=== PATIENT | female | born 1990 | race Caucasian/White ===

== ENCOUNTER 2017-04-17 16:28 | Observation (INO) ==
--- NOTE | 2017-04-17 16:40 | Emergency Department Note ---
Disposition Clinical Impression: Pyelonephritis Disposition: Admitted As Inpatient Condition: Fair Time of Disposition: 19:56 General Adult HPI - General Chief complaint: ED Abdominal Pain Stated complaint: abd/back pain Time Seen by Provider: 04/17/17 16:36 Source: patient Limitations: no limitations Nursing Notes Reviewed: Yes Vital Signs Reviewed: Yes - History of Present Illness HPI Narrative: 26-year-old female presents to the emergency department with concern for having a UTI as she has had in the past. She is complaining of myalgias, left flank tenderness. She is also reporting nausea. Patient states that she has had pyelonephritis in the past in and this had to be admitted for it. Patient states that she has a recent confirmed intrauterine 3 weeks ago. Pain Scale: 7 - Related Data Home Medications Medication Instructions Recorded Confirmed Ondansetron HCl [Zofran] 4 mg PO Q4-6H PRN 04/16/15 04/17/17 Previous Rx's Medication Instructions Recorded Vit/Iron Fumarate/FA 1 each PO DAILY #30 tablet 03/22/17 [ Tablet] Allergies Allergy/AdvReac Type Severity Reaction Status Date / Time No Known Allergies Allergy Verified 03/22/17 09:53 All systems ED: reviewed and negative except as stated. Review of Systems: As Per HPI Constitutional: Reports: fever Cardiovascular: Denies: chest pain Respiratory: Denies: cough Gastrointestinal: Reports: abdominal pain, nausea Genitourinary: Reports: urgency Musculoskeletal: Reports: back pain Integumentary: Denies: rash Neurological: Denies: headache Past Medical History - Past Medical History Medical history: Reports: no medical history, other Surgical history: Reports: other Psychiatric history: Reports: no psych history RECONSTRUCTIVE SURGEON history: Reports: no RECONSTRUCTIVE SURGEON history - Social History Smoking Status: Never smoker Smokeless Tobacco Status: No Alcohol use: Reports: none Drug use: Reports: none Physical Exam General: Thin 26-year-old male who appears mildly uncomfortable Head: autraumatic, EOMI, no conjuncitval pallor, no scleral icterus, Mouth: oral mucous membranes moist Neck: neck soft, trachea midline Chest:: Equal chest wall rise Lungs: Normal lungs sounds bilaterally, no wheezes, no respiratory distress Heart: normal heart sounds, normal rate and rhythm, Abdomen: soft, mild suprapubic tenderness, no rigidity, no guarding, no rebdound tenderness Back: Left CVA tenderness Lower Extremities: no pedal edema, calves non-tender Integumentary: Skin warm, dry, and intact Neuro: Alert Psych: normal affect, normal mood - General Limitations: no limitations General appearance: alert, in no apparent distress Course Vital Signs Temperature 99.8 F H 04/17/17 16:30 Pulse Rate 117 04/17/17 16:30 Respiratory Rate 16 04/17/17 16:30 Blood Pressure 109/76 04/17/17 16:30 O2 Sat by Pulse Oximetry 100 04/17/17 16:30 Temperature 98.7 F 04/17/17 21:10 Pulse Rate 105 04/17/17 21:10 Respiratory Rate 16 04/17/17 21:10 Blood Pressure 103/65 04/17/17 21:10 O2 Sat by Pulse Oximetry 97 04/17/17 21:10 Oxygen Delivery Oxygen Delivery Room Air Medical Decision Making - MDM Narrative Medical decision making narrative: 26-year-old female who is currently 11 weeks presented to the emergency department with concern for pyelonephritis as she was having left flank pain, subjective fevers. Patient's also reported a history of this. Patient's urinalysis revealed a urinary tract infection. Patient's CBC revealed a mild leukocytosis of 11.7. The patient was administered 2 L of fluid with normal saline in the emergency department. She was given Tylenol for her pain and Benadryl for nausea. Patient was given a gram of Rocephin here. Patient did not feel comfortable going home as she stated that she would probably come back to the emergency department if we released her. Due to patient being and having pyelonephritis, but that it was reasonable to admit her as pyelonephritis in can be risky for the . I spoke with the hospitalist on the phone and he agreed to accept the admission pending that I consult RECONSTRUCTIVE SURGEON. Consulted RECONSTRUCTIVE SURGEON regarding the case and they had no further recommendations for the patient as this is currently a nonviable below 20 weeks. They agreed with the antimicrobials that I administered as well as Tylenol. I discussed the plan with the patient and she was in agreement. Vital Signs Temperature 99.8 F H 04/17/17 16:30 Pulse Rate 117 04/17/17 16:30 Respiratory Rate 16 04/17/17 16:30 Blood Pressure 109/76 04/17/17 16:30 O2 Sat by Pulse Oximetry 100 04/17/17 16:30 Temperature 98.7 F 04/17/17 21:10 Pulse Rate 105 04/17/17 21:10 Respiratory Rate 16 04/17/17 21:10 Blood Pressure 103/65 04/17/17 21:10 O2 Sat by Pulse Oximetry 97 04/17/17 21:10 Oxygen Delivery Oxygen Delivery Room Air - Medical Records Medical records reviewed: Yes I reviewed the patient's medical records. - Lab Data Lab results reviewed: Yes I reviewed the patient's lab results. Result diagrams: 04/17/17 17:00 04/17/17 17:00 Lab Results 04/17/17 04/17/17 04/17/17 Range/Units 16:42 16:42 17:00 WBC 11.7 H (4.3-11.1) K/mcL RBC 3.70 L (3.82-4.97) M/mcL Hgb 11.0 L (11.5-15.4) g/dL Hct 31.8 L (35.3-44.9) % MCV 85.9 (83.0-100.0) fL MCH 29.7 (28.0-33.3) pg MCHC 34.6 (31.6-35.5) g/dL RDW 12.4 (11.5-14.5) % Plt Count 360 (140-400) K/mcL MPV 8.7 L (9.4-12.4) fL Immature Gran % 0.4 (0-4) % Seg Neutrophils % 76.0 % Lymphocytes % 11.5 % Monocytes % 11.0 % Eosinophils % 0.8 % Basophils % 0.3 % Neutrophils # 8.9 (1.6-8.9) K/mcL Lymphocytes # 1.3 (0.6-4.6) K/mcL Monocytes # 1.3 (0.0-1.3) K/mcL Eosinophils # 0.1 (0.0-0.6) K/mcL Basophils # 0.0 (0.0-0.2) K/mcL Sodium (136-145) mEq/L Potassium (3.5-4.5) mEq/L Chloride (98-109) mEq/L Carbon Dioxide (19-29) mEq/L BUN (7-20) mg/dL Creatinine (0.57-1.11) mg/dL Est GFR ( Amer) (> 60) Est GFR (Non-Af Amer) (> 60) BUN/Creatinine Ratio (6-26) Glucose (70-99) mg/dL Calculated Osmolality (280-300) Calcium (8.6-10.8) mg/dL Total Bilirubin (0.2-1.2) mg/dL AST (5-34) Units/L ALT (0-55) Units/L Alkaline Phosphatase (38-126) Units/L Serum Total Protein (6.0-8.3) g/dL Albumin (3.5-5.0) g/dL Globulin (2.4-3.5) g/dL Albumin/Globulin Ratio (1.1-2.2) Lipase (8-78) Units/L Urine Color Yellow (Yellow) Urine Clarity Cloudy A (Clear) Urine pH 6.5 (5.0-8.0) pH Units Ur Specific [place] 1.025 (1.010-1.025) Urine Protein Trace (Neg-Trace) mg/dL Urine Glucose (UA) Normal (Normal) mg/dL Urine Ketones Trace H (Negative) mg/dL Urine Blood Trace H (Negative) Urine Nitrite Positive A (Negative) Urine Bilirubin Negative (Negative) Urine Urobilinogen Normal (Normal) mg/dL Ur Leukocyte Esterase Large H (Negative) Urine Microscopic RBC 3-5 H (0-3) per hpf Urine Microscopic WBC TNTC H (0-3) per hpf Ur Squamous Epith Cells Many H (None-Few) per lpf Urine Bacteria Many H (None-Few) per hpf Ur Culture Indicated? YES A (NO) Urine Test Positive A (Negative) 04/17/17 Range/Units 17:00 WBC (4.3-11.1) K/mcL RBC (3.82-4.97) M/mcL Hgb (11.5-15.4) g/dL Hct (35.3-44.9) % MCV (83.0-100.0) fL MCH (28.0-33.3) pg MCHC (31.6-35.5) g/dL RDW (11.5-14.5) % Plt Count (140-400) K/mcL MPV (9.4-12.4) fL Immature Gran % (0-4) % Seg Neutrophils % % Lymphocytes % % Monocytes % % Eosinophils % % Basophils % % Neutrophils # (1.6-8.9) K/mcL Lymphocytes # (0.6-4.6) K/mcL Monocytes # (0.0-1.3) K/mcL Eosinophils # (0.0-0.6) K/mcL Basophils # (0.0-0.2) K/mcL Sodium 134 L (136-145) mEq/L Potassium 3.5 (3.5-4.5) mEq/L Chloride 104 (98-109) mEq/L Carbon Dioxide 21 (19-29) mEq/L BUN 8 (7-20) mg/dL Creatinine 0.62 (0.57-1.11) mg/dL Est GFR ( Amer) > 60 (> 60) Est GFR (Non-Af Amer) > 60 (> 60) BUN/Creatinine Ratio 13 (6-26) Glucose 79 (70-99) mg/dL Calculated Osmolality 275 L (280-300) Calcium 9.1 (8.6-10.8) mg/dL Total Bilirubin 0.5 (0.2-1.2) mg/dL AST 11 (5-34) Units/L ALT 7 (0-55) Units/L Alkaline Phosphatase 60 (38-126) Units/L Serum Total Protein 7.2 (6.0-8.3) g/dL Albumin 3.1 L (3.5-5.0) g/dL Globulin 4.1 H (2.4-3.5) g/dL Albumin/Globulin Ratio 0.8 L (1.1-2.2) Lipase 23 (8-78) Units/L Urine Color (Yellow) Urine Clarity (Clear) Urine pH (5.0-8.0) pH Units Ur Specific [place] (1.010-1.025) Urine Protein (Neg-Trace) mg/dL Urine Glucose (UA) (Normal) mg/dL Urine Ketones (Negative) mg/dL Urine Blood (Negative) Urine Nitrite (Negative) Urine Bilirubin (Negative) Urine Urobilinogen (Normal) mg/dL Ur Leukocyte Esterase (Negative) Urine Microscopic RBC (0-3) per hpf Urine Microscopic WBC (0-3) per hpf Ur Squamous Epith Cells (None-Few) per lpf Urine Bacteria (None-Few) per hpf Ur Culture Indicated? (NO) Urine Test (Negative) Attestation Statement - Attestation Attestation: I, Joe Pena DO, examined this patient [id number] and my medical decision-making was reviewed with Dr. Franklyn Ramsey, Resident Physician. I agree with the documented findings, disposition and treatment plan as described except to the extent set forth below. Please see my progress notes for details. 26-year-old female 00 to present to emergency room for evaluation of some myalgias, generalized malaise, urinary symptoms as well as intermittent chills. She is currently 11 weeks confirmed by intravaginal ultrasound completed at her obstetrics provider's office Dr. Pradhan. Patient has no other concerns or issues at this time. Vital signs reviewed and are stable except for mild tachycardia. Denies any vaginal discharge or bleeding. Patient is resting comfortably in the bed. She does have borderline a fever 99.8. History of urinary tract infections and dehydration her previous 2 pregnancies during the first trimester. Denies any nausea or vomiting. Denies fevers currently has intermittent chills. Does have a child that had a recent viral syndrome within the last 24 hours. Influenza swab as well as urinalysis to be completely 2 L of fluid beginning. No need for blood work or vaginal examination this time. Bedside ultrasound completed showing heart tones in the 130 range at this point. Good movement. Routine monitor her symptoms are controlled treatment course is completed. Concern is noted for urinary tract infection, bronchitis, viral syndrome causing her symptoms and presentation this time. Disposition will be determined once workup is completed. See detailed documentation of physical exam, medical intervention, medical decision making, disposition the resident physician's note.
[2017-04-17] MEDS ORDERED: 0.9 % Sodium Chloride 1,000 ML IVC ONE ×2 (16:47→17:32)
[2017-04-17 17:12] LABS: Bilirubin,Urine Negative (Negative); Blood,Urine Trace (Negative); Clarity,Urine Cloudy (Clear); Color,Urine Yellow (Yellow); Glucose,Urine (UA) Normal (Normal); Ketones,Urine Trace mg/dL (Negative); Leukocyte Esterase,Urine Large (Negative); Nitrite,Urine Positive (Negative); PH,Urine 6.5 pH Units (5.0-8.0); Protein,Urine Trace mg/dL (Neg-Trace); Specific Gravity,Urine 1.025 (1.010-1.025); Urobilinogen,Urine Normal (Normal)
[2017-04-17 17:15] LABS: Bacteria,Urine Many per hpf (None-Few); Squamous Epithelial Cell,Urine Many per lpf (None-Few); WBC,Urine TNTC per hpf (0-3)
[2017-04-17 17:19] LABS: Basophils % 0.3 %; Eosinophils # 0.1 K/mcL (0.0-0.6); Eosinophils % 0.8 %; Hematocrit 31.8 % (35.3-44.9); Immature Granulocytes % 0.4 % (0-4); Lymphocytes # 1.3 K/mcL (0.6-4.6); Lymphocytes % 11.5 %; Mean Corpuscular HGB Conc 34.6 g/dL (31.6-35.5); Mean Corpuscular Hemoglobin 29.7 pg (28.0-33.3); Mean Corpuscular Volume 85.9 fL (83.0-100.0); Mean Platelet Volume 8.7 fL (9.4-12.4); Monocytes # 1.3 K/mcL (0.0-1.3); Neutrophils # 8.9 K/mcL (1.6-8.9); Platelet Count 360 K/mcL (140-400); Red Cell Distribution Width 12.4 % (11.5-14.5)
[2017-04-17 17:58] LABS: Alanine Aminotransferase 7 Units/L (0-55); Albumin 3.1 g/dL (3.5-5.0); Albumin/Globulin Ratio 0.8 (1.1-2.2); Alkaline Phosphatase 60 Units/L (38-126); Aspartate Amino Transferase 11 Units/L (5-34); BUN/Creatinine Ratio 13 (6-26); Bilirubin,Total 0.5 mg/dL (0.2-1.2); Blood Urea Nitrogen 8 mg/dL (7-20); Calcium 9.1 mg/dL (8.6-10.8); Carbon Dioxide 21 mEq/L (19-29); Chloride 104 mEq/L (98-109); Globulin 4.1 g/dL (2.4-3.5); Glucose 79 mg/dL (70-99); Lipase 23 Units/L (8-78); Osmolality,Calculated 275 (280-300); Potassium 3.5 mEq/L (3.5-4.5); Sodium 134 mEq/L (136-145); Total Protein 7.2 g/dL (6.0-8.3); eGFR For African Americans > 60 (> 60); eGFR For Non-African Americans > 60 (> 60)
[2017-04-17] MEDS ORDERED: Naloxone 0.4 MG/ML INJ IVP PRN (20:30)
--- NOTE | 2017-04-17 20:30 | Internal Med History&Physical ---
Date of Encounter: 04/17/17 Time of Encounter: 08:30 Assessment and Plan (1) Pyelonephritis Current visit: Yes Status: Acute Will continue Ceftriaxone, follow cx. (2) Dehydration Current visit: Yes Status: Acute IVF and po ad cipriano (3) Intrauterine Current visit: Yes Status: Acute 11 weeks , ER contacted OB and no acute issues from their end so no need to consult, if any issues arise we will consult them. Internal Medicine - H&P: HPI Chief complaint: left flank pain Admitted From: Home Plans for Post Hospital Care: Home History of present illness: Ms. Simms is a 26 year old female no past medical history, 11 weeks preganant comes in with left flank pain radiating to her groin, some urinary frequency, no hesitancy, no discharge, no hematuria. She notes that she has had repeated UTI in her previous pregnancies. Review of urnine cultures in the past revealed E coli. Her UA was positive and she received Ceftriaxone. At this time she feels a little better but still feels very ill. Past Med Surg Social Fam HX - Past Medical History Medical history: no medical history, other Psychiatric history: no psych history - Past Surgical History Surgical History: other - Social History Smoking Status: Never smoker Smokeless Tobacco Status: No Alcohol use: none Drug use: none - Family History Father Adopted: No Living Status: Still Living Hx Family Cardiac Disorders: Yes (HTN) Hx Family Respiratory Disorders: No Hx Family Cancer: No Hx Family GI Disorders: No Hx Family Endocrine Disorder: No Hx Family Neuromuscular Disorders: No Hx Family Neurologic Disorders: No Hx Family HEENT Disorders: No Hx Family Autoimmune Disorders: No Internal Medicine - H&P: Meds Ondansetron HCl [Zofran] 4 mg PO Q4-6H PRN 04/16/15 [History] Vit/Iron Fumarate/FA [ Tablet] 1 each PO DAILY #30 tablet 03/22 [Rx] 3 Allergy/AdvReac Type Severity Reaction Status Date / Time No Known Allergies Allergy Verified 03/22/17 09:53 All Systems PM: A 10-system review of systems was performed and is negative for pertinent findings except as documented above in the HPI. - Constitutional Vitals: Temp Pulse Resp BP Pulse Ox 99.8 F H 112 16 116/75 99 04/17/17 16:30 04/17/17 17:45 04/17/17 17:45 04/17/17 17:45 04/17/17 17:45 General appearance: Present: A&O X 3, no acute distress - Head Head exam: Present: atraumatic, normal inspection, normocephalic - Eye Eye exam: Present: EOMI, PERRL - ENT ENT exam: Present: mucous membranes moist, normal exam - Neck Neck exam general surgery: Present: full ROM, supple, trachea midline - Respiratory Respiratory exam: Present: CTAB - Cardiovascular Cardiovascular exam: Present: RRR, +S1, +S2 - GI/Abdominal Additional comments: Soft, tender left flank no guarding no rebound. suprapubic tenderness. - Extremities Exam Extremities exam: Present: full ROM - Back Exam Back exam: Present: full ROM - Neurological Exam Neurological exam: Present: alert, oriented X3, no focal deficits - Psychiatric Psychiatric exam: Present: normal affect, normal mood - Skin Skin exam: Present: dry, warm Internal Med - H&P Results - Labs CBC & Chem 7: 04/17/17 17:00 04/17/17 17:00
[2017-04-17] MEDS: Acetaminophen 325 MG TABLET PO PRN (23:15)
[2017-04-17] MEDS: *HR* Heparin 5,000 UNIT/ML VIAL SQ SCH (23:15)
[2017-04-17] MEDS: 0.9 % Sodium Chloride 1,000 ML IVC SCH (23:15)
[2017-04-18] MEDS: *HR* Heparin 5,000 UNIT/ML VIAL SQ SCH (05:52)
[2017-04-18 06:29] LABS: Basophils % 0.4 %; Eosinophils # 0.2 K/mcL (0.0-0.6); Hematocrit 26.1 % (35.3-44.9); Immature Granulocytes % 0.7 % (0-4); Lymphocytes # 2.4 K/mcL (0.6-4.6); Lymphocytes % 26.1 %; Mean Corpuscular HGB Conc 33.7 g/dL (31.6-35.5); Mean Corpuscular Hemoglobin 29.8 pg (28.0-33.3); Mean Corpuscular Volume 88.5 fL (83.0-100.0); Mean Platelet Volume 9.5 fL (9.4-12.4); Monocytes # 1.2 K/mcL (0.0-1.3); Monocytes % 13.1 %; Neutrophils # 5.3 K/mcL (1.6-8.9); Platelet Count 303 K/mcL (140-400); Red Blood Count 2.95 M/mcL (3.82-4.97); Red Cell Distribution Width 12.7 % (11.5-14.5); Segmented Neutrophils % 57.7 %
[2017-04-18 06:30] LABS: Hemoglobin 8.8 g/dL (11.5-15.4)
[2017-04-18 06:40] LABS: BUN/Creatinine Ratio 16 (6-26); Blood Urea Nitrogen 8 mg/dL (7-20); Calcium 8.1 mg/dL (8.6-10.8); Carbon Dioxide 19 mEq/L (19-29); Chloride 110 mEq/L (98-109); Glucose 77 mg/dL (70-99); Magnesium 1.5 mg/dL (1.6-2.6); Osmolality,Calculated 281 (280-300); Phosphorous 3.4 mg/dL (2.3-4.7); Potassium 3.3 mEq/L (3.5-4.5); Sodium 137 mEq/L (136-145); eGFR For African Americans > 60 (> 60); eGFR For Non-African Americans > 60 (> 60)
[2017-04-18] MEDS ORDERED: CefTRIAXone 1,000 MG VIAL ONE ×2 (08:18→08:21)
[2017-04-18] MEDS: 0.9 % Sodium Chloride 1,000 ML IVC SCH (08:24)
[2017-04-18] MEDS: Acetaminophen 325 MG TABLET PO PRN (08:24)
[2017-04-18 10:07] VITALS: BP 101/62
[2017-04-18] MEDS ORDERED: Water for inj. (sterile) 10 ML IV ONE (10:44)
[2017-04-18] MEDS ORDERED: cefTRIAXone 1,000 MG in Water for inj. (sterile) 10 ML IVP SCH (11:00)
[2017-04-18] MEDS ORDERED: Magnesium Sulfate 2 GM in D5% in Water 100 ML IVPB ONE (12:07)
--- NOTE | 2017-04-18 13:07 | Discharge Summary ---
Date of Encounter: 04/18/17 Time of Encounter: 13:04 - Discharge Diagnosis (1) Pyelonephritis Priority: Primary Status: Acute (2) Dehydration Priority: Secondary Status: Acute (3) Intrauterine Priority: Secondary Status: Acute - Discharge Medications Prescriptions: Cefdinir [Omnicef] 300 mg PO BID #24 capsule Home Medications: Ondansetron HCl [Zofran] 4 mg PO Q4-6H PRN 04/16/15 [History] Vit/Iron Fumarate/FA [ Tablet] 1 each PO DAILY #30 tablet 03/22 [Rx] Cefdinir [Omnicef] 300 mg PO BID #24 capsule 04/18/17 [Rx] Allergies/Adverse Reactions: 3 Allergy/AdvReac Type Severity Reaction Status Date / Time No Known Allergies Allergy Verified 03/22/17 09:53 Date of admission: 04/17/17 20:03 Primary care physician: Steve Jimenez MD Discharging clinician: Alisa Shore Anticipated date of discharge: 04/18/17 - Patient Status Disposition: Home, Self-Care Condition: Good Functional capacity at discharge: independent ambulation Overall status at discharge: patient is progressing back to baseline - Discharge Instructions Instructions: Urinary Tract Infection in Women (DC) Follow Up With: Steve Jimenez MD [Primary Care Provider] - 04/26/17 9:30 am () - Diet and Activity Activity: increase activity as tolerated Diet: advance to your usual diet Hospital course: Ms. Simms is a 26 yr old female patient who is 11 weeks presented to the ER with complaints of left flank pain radiating to her groin along with some urinary frequency. Patient has had prior urinary tract infections as recently as earlier this month with Escherichia coli for which she was treated with Macrobid. During this hospitalization, she received intravenous ceftriaxone with an intravenous fluids with improvement in her symptoms. She is now doing much better overall with resolution of her leukocytosis. She was diagnosed with acute left pyelonephritis. I suspect this is due to incomplete treatment with Macrobid for her prior urinary tract infection with Escherichia coli. This was sensitive to cephalosporins and as she is feeling much better now without any fever or chills, I will discharge her on cefdinir. She has received 2 days of IV antibiotics. She will complete a 14 day antibiotic course. She can follow up further with her primary care provider and her OB- [facility] [employer] for further management. - Time Spent with Patient Total time spent providing and/or coordinating discharge services: Less than 30 minutes (25 min) - Constitutional Vitals: Temp Pulse Resp BP Pulse Ox 98.3 F 102 14 101/62 98 04/18/17 10:06 04/18/17 10:06 04/18/17 10:06 04/18/17 10:06 04/18/17 10:06 General appearance: Present: cooperative, A&O X 3, no acute distress, answers questions appropriately - Respiratory Respiratory exam: Present: CTAB. Absent: accessory muscle use ( ), rales, rhonchi, wheezes - Cardiovascular Cardiovascular exam: Present: RRR, +S1, +S2. Absent: diastolic murmur, gallop, rubs, systolic murmur - GI/Abdominal GI/Abdominal exam: Present: normal bowel sounds, soft, no peritoneal signs. Absent: distended, tenderness - Extremities Exam Extremities exam: Present: warm, radial pulses palpable and symmetrical. Absent : calf tenderness, cyanotic, pedal edema
[2017-04-18] MEDS ORDERED: FLUARIX QUAD 2017-18 36MOS UP/PF 0.5 ML SYRINGE IM ONE (22:52)
== END 2017-04-18 16:05 | disposition home or self-care (01) ==
LOC: EMEROO 16:28 → 3ANU 16:28 → SUATTDRO 20:03 → 3ANU 20:09
PROVIDERS: ADMIT Internal Medicine; ATTEND Internal Medicine

== ENCOUNTER → 2017-09-23 20:32 | Observation (INO) ==
[2017-09-23 17:29] LABS: Bilirubin,Urine Negative (Negative); Blood,Urine Negative (Negative); Clarity,Urine Cloudy (Clear); Color,Urine Yellow (Yellow); Glucose,Urine (UA) Normal (Normal); Ketones,Urine Negative (Negative); Leukocyte Esterase,Urine Small (Negative); Nitrite,Urine Negative (Negative); Protein,Urine Negative (Neg-Trace); Specific Gravity,Urine 1.008 (1.010-1.025); Urobilinogen,Urine Normal (Normal)
[2017-09-23 17:31] LABS: Bacteria,Urine Many per hpf (None-Few); Hyaline Casts,Urine None Seen per lpf (None-Few); Squamous Epithelial Cell,Urine Many per lpf (None-Few); WBC,Urine 15-30 per hpf (0-3)
[2017-09-23 17:37] LABS: Amphetamine Screen,Urine Negative ng/mL (Cutoff=1000); Barbiturate Screen,Urine Negative ng/mL (Cutoff=200); Benzodiazepines Screen,Urine Negative ng/mL (Cutoff=200); Cannabinoid Screen,Urine Negative ng/mL (Cutoff = 50); Cocaine Screen,Urine Negative ng/mL (Cutoff= 300); Opiate Screen,Urine Negative ng/mL (Cutoff=300); Phencyclidine Screen,Urine Negative ng/mL (Cutoff=25)
--- NOTE | 2017-09-23 18:21 | OB/GYN Progress Note ---
Date of Encounter: 09/23/17 Time of Encounter: 18:17 - Assessment and Plan (1) 33 weeks gestation of Current Visit: Yes Status: Acute (2) uterine contractions in third trimester, antepartum Current Visit: Yes Status: Acute Cervix 1.5cm, Given LR bolus, no cervical change noted but continues to have occasional contractions. Pt states still painful at times, Will discharge home with when to all provider or return to triage precautions. Ambien given 2 tabs. Instructed patient to follow up with MD on Monday. Discussed with Dr. Guadalupe Subjective - Subjective Interval history: 33+6 weeks gestation, presents to triage for evaluation of contractions and back pain. Pt states contractions started last night, with occasional pain, but has become regular a few times an hour with increasing back pain. Reports good movement, denies vaginal bleeding or leaking of fluid. Care with Dr. Pradhan. last intercourse 3 weeks ago Antepartum ROS: movement normal, contractions, no loss of fluid, no vaginal bleeding Objective - Vital Signs Vital Signs: Intake and Output 09/23/17 09/23/17 09/23/17 07:59 15:59 23:59 Other: Weight 51 kg Patient Weight 09/23/17 23:59 Weight 51 kg - Exam FHR: auscultation normal FHR comments: Baseline 125 Abdomen: Present: soft, gravid Cervical dilation: 1.5/50/-3 Comments: - CVA tenderness. - Labs Labs: Abnormal lab results Urine Clarity Cloudy (Clear) A 09/23/17 17:15 Ur Specific [place] 1.008 (1.010-1.025) L 09/23/17 17:15 Ur Leukocyte Esterase Small (Negative) H 09/23/17 17:15 Urine Microscopic RBC 3-5 per hpf (0-3) H 09/23/17 17:15 Urine Microscopic WBC 15-30 per hpf (0-3) H 09/23/17 17:15 Ur Squamous Epith Cells Many per lpf (None-Few) H 09/23/17 17:15 Urine Bacteria Many per hpf (None-Few) H 09/23/17 17:15
[~2017-09-23 20:32] MED LIST: Acetaminophen 325 MG TABLET PO ONE; Ringers Solution, Lactated 1,000 ML IVC ONE; Ringers Solution, Lactated 1,000 ML IVC SCH; Terbutaline 1 MG/ML VIAL SQ ONE
== END | disposition home or self-care (01) ==
LOC: 1NENULAB
PROVIDERS: ADMIT Advanced Practice Midwife; ATTEND Advanced Practice Midwife

== ENCOUNTER → 2017-10-08 07:36 | Observation (INO) ==
[2017-10-08 06:26] LABS: Bilirubin,Urine Negative (Negative); Blood,Urine Negative (Negative); Color,Urine Yellow (Yellow); Glucose,Urine (UA) Normal (Normal); Ketones,Urine 40 mg/dL (Negative); Leukocyte Esterase,Urine Trace (Negative); Nitrite,Urine Negative (Negative); Protein,Urine Negative (Neg-Trace); Specific Gravity,Urine 1.013 (1.010-1.025); Urobilinogen,Urine Normal (Normal)
[2017-10-08 06:28] LABS: Bacteria,Urine Few per hpf (None-Few); Hyaline Casts,Urine None Seen per lpf (None-Few); RBC,Urine 0-3 per hpf (0-3); Squamous Epithelial Cell,Urine Many per lpf (None-Few)
[2017-10-08 06:29] LABS: Clarity,Urine Clear (Clear)
[2017-10-08 06:49] LABS: Amphetamine Screen,Urine Negative ng/mL (Cutoff=1000); Barbiturate Screen,Urine Negative ng/mL (Cutoff=200); Benzodiazepines Screen,Urine Negative ng/mL (Cutoff=200); Cannabinoid Screen,Urine Negative ng/mL (Cutoff = 50); Cocaine Screen,Urine Negative ng/mL (Cutoff= 300); Opiate Screen,Urine Negative ng/mL (Cutoff=300); Phencyclidine Screen,Urine Negative ng/mL (Cutoff=25)
--- NOTE | 2017-10-08 08:51 | OB/GYN Progress Note ---
Date of Encounter: 10/08/17 Time of Encounter: 08:49 - Assessment and Plan (1) 36 weeks gestation of Status: Acute (2) uterine contractions in third trimester, antepartum Status: Acute Monitor x 1 hour - SVE recheck unchanged labor precautions given Discharge home with follow up Subjective - Subjective Principal diagnosis: contractions Interval history: Patient presents with c/o contractions and back pain since 0600. Reports +fm, and denies LOF, and vaginal bleeding. Antepartum ROS: movement normal, contractions, no loss of fluid, no vaginal bleeding Objective - Vital Signs Vital Signs: Intake and Output 10/07/17 10/08/17 10/08/17 23:59 07:59 15:59 Other: Weight 51.8 kg Patient Weight 10/08/17 23:59 Weight 51.8 kg - Exam FHR: auscultation normal, category 1 Auscultation: bilateral: normal Abdomen: Present: normal appearance, soft, gravid Uterus: Present: normal, firm Cervical dilation: 3 Cervix effacement: 70 station: -3 - Labs Labs: Abnormal lab results Urine Ketones 40 mg/dL (Negative) H 10/08/17 06:15 Ur Leukocyte Esterase Trace (Negative) H 10/08/17 06:15 Urine Microscopic WBC 3-5 per hpf (0-3) H 10/08/17 06:15 Ur Squamous Epith Cells Many per lpf (None-Few) H 10/08/17 06:15 Ur Culture Indicated? NO. (NO) A 10/08/17 06:15
== END | disposition home or self-care (01) ==
LOC: 1NENULAB
PROVIDERS: ADMIT Advanced Practice Midwife; ATTEND Advanced Practice Midwife

== ENCOUNTER 2017-10-13 05:49 | Inpatient (IN) ==
--- NOTE | 2017-10-13 05:39 | OB/GYN History & Physical ---
Date of Encounter: 10/13/17 Time of Encounter: 05:37 Assessment and Plan (1) Breech presentation of fetus Current visit: Yes Status: Acute Reach presentation confirmed by ultrasound by Dr. Rowland Qualifiers: Fetus number: single or unspecified fetus Qualified Code(s): O32.1XX0 - Maternal care for breech presentation, not applicable or unspecified (2) 36 weeks gestation of Current visit: No Status: Acute (3) SROM (spontaneous rupture of membranes) Current visit: Yes Status: Acute Nitrazine positive with pooling under patient, admit to labor and delivery for section, standard section orders. Dr. Rowland is aware History of Present Illness Chief complaint: Rupture membranes HPI: Ms. Simms is a 27 year old female 36+5 weeks gestation presents to triage with complaints of spontaneous rupture membranes at 4 AM. Patient with uncomplicated course care from Dr. Pradhan and Dr. Hogan. Patient reports good movement, denies vaginal bleeding or leaking of fluid. No past medical history or obstetrical complications with delivery Labs: A+, rubella and varicella immune, GBS unknown, hepatitis B negative, cystic fibrosis negative. Awaiting rest of labs from [place] Past Med Surg Social Fam HX - Past Medical History Medical history: no medical history, other Psychiatric history: no psych history - Past Surgical History Surgical History: other - Social History Smoking Status: Never smoker Smokeless Tobacco Status: No Alcohol use: none Drug use: none - Family History Father Adopted: No Age: 50 Living Status: Still Living Hx Family Cardiac Disorders: Yes (htn) Hx Family Respiratory Disorders: No Hx Family Cancer: No Hx Family GI Disorders: No Hx Family Genitourinary Disorders: No Hx Family Endocrine Disorder: No Hx Family Musculoskeletal Disorders: No Hx Family Neuromuscular Disorders: No Hx Family Neurologic Disorders: No Hx Family HEENT Disorders: No Hx Family Autoimmune Disorders: No Hx Family Reproductive Disorders: No Hx Family Psychosocial Disorders: No Hx Family Medical Disorders: No Obstetrical History - Pregnancies : 3 Para: 2 Term: 2 : 0 Ab's: 0 Livin Medications and Allergies Vit/Iron Fumarate/FA [ Tablet] 1 each PO DAILY #30 tablet 03/22 [Rx] 3 Allergy/AdvReac Type Severity Reaction Status Date / Time No Known Allergies Allergy Verified 10/08/17 06:08 Exam - Constitutional Constitutional: well developed, well nourished, no acute distress, average body habitus - Neck Neck exam: full ROM - Lungs Respiratory exam: CTAB - Cardiovascular Cardiovascular exam: RRR - Abdomen Abdomen: Present: bowel sounds normal, gravid, non tender - Extremities Extremities exam: normal capillary refill, normal inspection - Vagina Vagina: Present: normal moisture - Cervix Dilation: 3 Effacement: 80 Station: -1 (Breech) Results All other labs normal. - VTE Reasons for not Prescribing Prophylaxis: Treatment not Indicated - Low risk for VTE
[~2017-10-13 05:49] MED LIST changes: -Acetaminophen 325 MG TABLET PO ONE; +Famotidine 20 MG/2 ML VIAL IVP PRN; +Metoclopramide 10 MG/2 ML VIAL IVP PRN; +Naloxone 0.4 MG/ML INJ IVP PRN; -Ringers Solution, Lactated 1,000 ML IVC ONE; -Ringers Solution, Lactated 1,000 ML IVC SCH; -Terbutaline 1 MG/ML VIAL SQ ONE
[2017-10-13] MEDS ORDERED: ceFAZolin 2,000 MG in 0.9 % Sodium Chloride 100 ML IVP ONE (05:59)
[2017-10-13] MEDS ORDERED: Ringers Solution, Lactated 1,000 ML IVC SCH ×2 (06:00→10:00)
[2017-10-13 06:02] LABS: Bilirubin,Urine Negative (Negative); Blood,Urine Negative (Negative); Clarity,Urine Clear (Clear); Color,Urine Yellow (Yellow); Glucose,Urine (UA) Normal (Normal); Ketones,Urine Negative (Negative); Leukocyte Esterase,Urine Negative (Negative); Nitrite,Urine Negative (Negative); Protein,Urine Negative (Neg-Trace); Specific Gravity,Urine 1.011 (1.010-1.025); Urobilinogen,Urine Normal (Normal)
[2017-10-13] MEDS ORDERED: Lidocaine -MPF 2% 5 ML VIAL ONE ×2 (06:03→08:30)
[2017-10-13 06:04] LABS: Amphetamine Screen,Urine Negative ng/mL (Cutoff=1000); Barbiturate Screen,Urine Negative ng/mL (Cutoff=200); Benzodiazepines Screen,Urine Negative ng/mL (Cutoff=200); Cannabinoid Screen,Urine Negative ng/mL (Cutoff = 50); Cocaine Screen,Urine Negative ng/mL (Cutoff= 300); Opiate Screen,Urine Negative ng/mL (Cutoff=300); Phencyclidine Screen,Urine Negative ng/mL (Cutoff=25)
--- NOTE | 2017-10-13 06:22 | Anesthesia Evaluation PreOp ---
Date of Encounter: 10/13/17 Time of Encounter: 06:20 - Past History Planned Operation: csection Cardiac History: Denies any Significant Hx Pulmonary History: Denies Any Significant HX [employer] FOR [employer] DIRECT[employer] History: Denies Any Significant HX Other Medical History: Denies Any Significant HX Anesthesia History: No Prior Anesthetic Complications, Past Anesthesia (left elbow) : Yes (36 plus 5, ) Alcohol Use: none Drug use: none Medications and Allergies Vit/Iron Fumarate/FA [ Tablet] 1 each PO DAILY #30 tablet 03/22 [Rx] 3 Allergy/AdvReac Type Severity Reaction Status Date / Time No Known Allergies Allergy Verified 10/08/17 06:08 - Meds/Allergy Pre-op Review Medications Reviewed: Yes Allergies Reviewed: Yes Beta Blockers on Current Med List: No Anesthesia Exam O2 Sat Height 1.6 m Weight 52.5 kg Height: 63 Weight: 52 NPO (# of Hours): sip of water 0400, otherwise >8hr - HEENT Pupil (Motor): Pupils equal Mallampati: II Teeth: Normal Oral Opening: Greater than 3 - [employer] LOC: Oriented [employer] Motor: Normal RUE, Normal LUE, Normal RLE, Normal LLE, Normal Face [employer] Sensory: Normal: RUE, LUE, RLE, LLE, Face - Cardiac Rhythm: Regular Murmur: None JVD: No Carotid Bruit: No - Pulmonary Breath Sounds: bilateral Clear Respiratory Effort: Symmetrical Anesthesia Assess/Plan ASA Score: 2 Modified [place] Scale for Level of Consciousness: Cooperative, oriented, and tranquil Anesthetic Plan: Regional Monitoring Plan: Standard Monitors Recovery Plan: PACU
[2017-10-13] MEDS ORDERED: MORPHINE SUL Oral CONC 10 MG/0.5 ML ORAL.SYG SL PRN (06:23)
[2017-10-13] MEDS ORDERED: Ondansetron 4 MG/2 ML VIAL IVP ONE (06:23)
[2017-10-13] MEDS ORDERED: *HR* Promethazine 25 MG/ML VIAL IVP PRN (06:23)
[2017-10-13 06:46] LABS: Basophils # 0.1 K/mcL (0.0-0.2); Basophils % 0.7 %; Eosinophils # 0.3 K/mcL (0.0-0.6); Eosinophils % 1.6 %; Hematocrit 29.3 % (35.3-44.9); Hemoglobin 9.6 g/dL (11.5-15.4); Immature Granulocytes % 2.5 % (0-4); Lymphocytes % 24.9 %; Mean Corpuscular HGB Conc 32.8 g/dL (31.6-35.5); Mean Corpuscular Hemoglobin 27.6 pg (28.0-33.3); Mean Corpuscular Volume 84.2 fL (83.0-100.0); Mean Platelet Volume 9.7 fL (9.4-12.4); Monocytes # 1.4 K/mcL (0.0-1.3); Monocytes % 8.6 %; Neutrophils # 9.9 K/mcL (1.6-8.9); Nucleated Red Blood Cells 0.1 /100 WBC (0); Platelet Count 362 K/mcL (140-400); Red Blood Count 3.48 M/mcL (3.82-4.97); Red Cell Distribution Width 13.3 % (11.5-14.5); Segmented Neutrophils % 61.7 %
[2017-10-13] MEDS ORDERED: *HR* Phenylephrine 10 MG/ML VIAL ONE (08:23)
[2017-10-13] MEDS ORDERED: EPHEDrine 50 MG/ML VIAL ONE (08:24)
[2017-10-13] MEDS ORDERED: Morphine Sulfate/PF 5mg/10mL Vial ONE (08:25)
[2017-10-13] MEDS ORDERED: *HR* Oxytocin 10 UNIT/ML VIAL IM ONE (09:02)
--- NOTE | 2017-10-13 09:08 | Anesthesia Evaluation PreOp ---
Date of Encounter: 10/13/17 Time of Encounter: 08:36 - Past History Alcohol Use: none Drug use: none Medications and Allergies Vit/Iron Fumarate/FA [ Tablet] 1 each PO DAILY #30 tablet 03/22 [Rx] 3 Allergy/AdvReac Type Severity Reaction Status Date / Time No Known Allergies Allergy Verified 10/08/17 06:08 Anesthesia Results - Labs 10/13/17 06:09
--- NOTE | 2017-10-13 09:12 | Anesthesia Procedures ---
Date of Encounter: 10/13/17 Time of Encounter: 08:36 Procedures: Anesthesia - Epidural/Spinal Patient ID/Chart reviewed: Yes Patient examined: Yes OB Eval: Gestational age: 36.5 OB Eval: : 3 OB Eval: Hx Para: 2 OB Eval: Contractions: Non-stressed pattern Consent Obtained: Yes Supplemental Oxygen: None/Room Air Site Prep: Aseptic Technique, Sterile prep and drape, Povidone-Iodine 1% Patient position: upright Local Anesthetic: other (lidocaine 2%) Amount of Local Anesthetic used: 3 Interspace Used: L3-L4 Loss of Resistance (AVTAR): No Blood: No CSF: Yes Paresthesia: No Spinal Needle Gauge: 25 Spinal Dose: Bupivicaine 0.5% in NACL 2ml Morphine 250mcg Procedure: Intrathecal dose administered in upright position 1st pass without any immediate noted complications. VSS throughout. Vitals + FHT's: See anesthesia record
--- NOTE | 2017-10-13 09:43 | OB/GYN Procedure Note ---
OB-ANIMATOR: Procedure - Diagnosis Date of procedure: 10/13/17 Pre-op diagnosis: breech presentation, PPROM @ 36 weeks Post-op diagnosis: same - Procedure Procedure: primary c section Surgeon: Candida Baca Was there an web production assistant present: Yes Head Coach: Joel Marina Anesthesia Type: General Estimated blood loss (cc): 500 Fluids: crystalloid Procedure Complications: none Specimens collected: placenta Disposition: floor Findings: per procedure Narrative: Patient was brought to the operating room and was given satisfactory spinal anesthesia. The abdomen was prepped and draped in a sterile fashion. A Pfannenstiel incision was made and carried sharply down to the level of fascia. The fascia was incised transversely. The fascia was dissected away from the underlying rectus muscles. With sharp and blunt dissection, rectus muscles were divided in midline. The perineum was entered bluntly. The incision was carried vertically with scissors. A transverse incision was made across the bladder peritoneum. The bladder was dissected away from the underlying lower uterine segment. A bladder retractor was placed to protect the bladder. The lower uterine segment was entered sharply with a scalpel. The incision was manually extended. Clear amniotic fluid was encountered. The infant was noted to be breech and was delivered easily. The mouth and oropharynx were suctioned. The cord was clamped and cut. The infant was passed off to the waiting nurse. The placenta was extracted completely and found to be intact. The uterus was explored and found to be empty. The uterus was delivered through the abdominal incision and massaged vigorously. Intravenous Pitocin was administered. Clamps were placed about the margins of the uterine incision, which was closed primarily with a running locking stitch of 0 Vicryl with adequate hemostasis. The uterus was returned to its proper anatomic position in the abdomen. The fascia was closed with a simple running stitch of 0 vicryl. The skin was closed with running subcuticular of 4-0 vicryl. Uterus was expressed of its contents. Patient was brought to the recovery room in satisfactory condition. There were no complications. There was 500 cc of blood loss. All sponge, needle, and instrument counts were reported to be correct.
[2017-10-13] MEDS ORDERED: Oxytocin 20 units/ LR 1000 mL 20 UNIT/1,000 ML BAG IVC ONE (09:46)
[2017-10-13] MEDS ORDERED: Metoclopramide 10 MG/2 ML VIAL IVP PRN (09:49)
[2017-10-13] MEDS ORDERED: Simethicone 80 MG TAB.CHEW PO PRN (09:49)
[2017-10-13] MEDS ORDERED: Sennosides 8.6 MG TABLET PO PRN (09:49)
[2017-10-13] MEDS ORDERED: Ondansetron 4 MG/2 ML VIAL IVP PRN (09:49)
[2017-10-13] MEDS ORDERED: Oxytocin 20 units/ LR 1000 mL 20 UNIT/1,000 ML BAG IVC SCH (10:00)
[2017-10-13] MEDS ORDERED: Ondansetron 4 MG/2 ML VIAL ONE (13:38)
[2017-10-13] MEDS ORDERED: Dexamethasone 4 MG/ML VIAL ONE (13:38)
--- NOTE | 2017-10-13 14:32 | Anesthesia Evaluation Post Op ---
Date of Encounter: 10/13/17 Time of Encounter: 11:30 - Vital Signs Vital Signs: Vital Signs Temperature 98.3 F 10/13/17 12:30 Pulse Rate 60 10/13/17 12:30 Respiratory Rate 12 10/13/17 12:30 Blood Pressure 132/85 10/13/17 12:30 O2 Sat by Pulse Oximetry 97 10/13/17 12:30 Temperature 98.2 F 10/13/17 13:35 Pulse Rate 72 10/13/17 13:35 Respiratory Rate 16 10/13/17 13:35 Blood Pressure 130/78 10/13/17 13:35 O2 Sat by Pulse Oximetry 98 10/13/17 13:35 - Lungs Lungs: Clear Ascult./Percussion - Airway Airway: Non-obstructed - Cardiovascular Regular Rate - Mental Status Mental Status: Alert & Oriented, Answers Appropriately - Pain Pain Scale: 4 Pain Scale used: Numeric (1 - 10) - Nausea Vomiting Nausea Vomiting: Not Present - Hydration Hydration: NPO, Dolan catheter - Discharge PostOp Status: Transfer Patient to floor
[2017-10-13] MEDS: *HR* OxyCODONE/APAP 5/325 TABLET PO PRN (20:20)
[2017-10-14] MEDS: *HR* OxyCODONE/APAP 5/325 TABLET PO PRN ×6 (00:11→23:53)
[2017-10-14] MEDS: Ibuprofen 600 MG TABLET PO PRN ×3 (03:13→19:48)
[2017-10-14 06:13] LABS: Basophils # 0.1 K/mcL (0.0-0.2); Basophils % 0.4 %; Eosinophils # 0.2 K/mcL (0.0-0.6); Eosinophils % 1.1 %; Hematocrit 29.7 % (35.3-44.9); Hemoglobin 9.4 g/dL (11.5-15.4); Immature Granulocytes % 1.3 % (0-4); Lymphocytes # 4.7 K/mcL (0.6-4.6); Lymphocytes % 27.5 %; Mean Corpuscular HGB Conc 31.6 g/dL (31.6-35.5); Mean Corpuscular Hemoglobin 27.2 pg (28.0-33.3); Mean Corpuscular Volume 86.1 fL (83.0-100.0); Mean Platelet Volume 9.4 fL (9.4-12.4); Monocytes % 11.7 %; Neutrophils # 9.9 K/mcL (1.6-8.9); Nucleated Red Blood Cells 0.1 /100 WBC (0); Platelet Count 322 K/mcL (140-400); Red Blood Count 3.45 M/mcL (3.82-4.97); Red Cell Distribution Width 13.2 % (11.5-14.5)
[2017-10-14] MEDS: Prenatal Vit/FA 1 EACH TABLET PO SCH (08:21)
--- NOTE | 2017-10-14 10:05 | OB/GYN Progress Note ---
Date of Encounter: 10/14/17 Time of Encounter: 10:02 - Assessment and Plan (1) Status post primary low transverse section Current Visit: Yes Status: Acute Continue routine /post surgical orders Meeting appropriate milestones Anticipate discharge home tomorrow. Subjective - Subjective Principal diagnosis: Primary C/S for Breech Presentation Interval history: S/P Primary C/S for Breech Day 1 Pain is well controlled Lochia is light and without clots VSS Denies headache, visual disturbances, and epigastric pain Tolerating regular diet and passing flatus Urinating without difficulty Bottle feeding Anticipate discharge home tomorrow. Patient reports: appetite normal, voiding normally, pain well controlled, ambulating normally : doing well, bottle feeding Objective - Vital Signs Latest vital signs: Vital Signs Temp Pulse Pulse Resp BP Pulse Ox 10/14/17 08:06 98.3 F 57 16 129/82 10/14/17 08:00 16 10/14/17 04:10 119/75 10/14/17 03:20 98.4 F 55 20 155/88 99 10/14/17 00:01 99.4 F 65 16 127/70 98 10/13/17 20:18 98.4 F 61 16 131/75 95 10/13/17 15:57 16 10/13/17 15:30 98.8 F 56 16 135/80 97 10/13/17 14:42 98.7 F 55 60 16 145/80 98 10/13/17 13:35 98.2 F 72 16 130/78 98 10/13/17 13:05 97.9 F 61 16 142/88 99 10/13/17 12:31 16 10/13/17 12:30 98.3 F 60 12 132/85 97 Intake and Output 10/13/17 10/14/17 10/14/17 23:59 07:59 15:59 Intake Total 1015 / 1015 1200 / 1200 120 / 120 Output Total 1300 / 1300 Balance 1015 / 1015 -100 / -100 120 / 120 Intake: IV Fluids 1000 / 1000 Pitocin 20 unit In 1,000 ml @ 1000 / 1000 125 mls/hr IVC .Q8H ROSALIO Rx#: [id number] Oral 200 / 200 200 / 200 120 / 120 Other 815 / 815 Output: Urine 700 / 700 Catheter 600 / 600 Other: Meal Breakfast Percent of Meal Consumed 10% - Exam Lungs: bilateral: normal Chest: Normal S1, Normal S2 Extremities: Present: normal Abdomen: Present: normal appearance, soft. Absent: gravid, tenderness Incision: Present: normal (C/D/I dressing) Uterus: Present: normal, firm Fundal Height: 0 (@U) - Labs Labs: Laboratory Results - last 24 hr 10/14/17 05:55 WBC 17.1 H RBC 3.45 L Hgb 9.4 L Hct 29.7 L MCV 86.1 MCH 27.2 L MCHC 31.6 RDW 13.2 Plt Count 322 MPV 9.4 Immature Gran % 1.3 Seg Neutrophils % 58.0 Lymphocytes % 27.5 Monocytes % 11.7 Eosinophils % 1.1 Basophils % 0.4 Neutrophils # 9.9 H Lymphocytes # 4.7 H Monocytes # 2.0 H Eosinophils # 0.2 Basophils # 0.1 Nucleated RBCs/100 WBC 0.1 H
[2017-10-15] MEDS: *HR* OxyCODONE/APAP 5/325 TABLET PO PRN ×2 (04:43→13:01)
[2017-10-15] MEDS: Ibuprofen 600 MG TABLET PO PRN (04:43)
[2017-10-15] MEDS: Prenatal Vit/FA 1 EACH TABLET PO SCH (07:49)
[2017-10-15 08:11] VITALS: BP 157/89
--- NOTE | 2017-10-15 08:46 | Discharge Summary ---
Date of Encounter: 10/15/17 Time of Encounter: 08:45 - Discharge Diagnosis (1) S/P primary low transverse Priority: Primary Status: Acute Comments: Continue routine postop care discharge home today (2) Contraception Priority: Secondary Status: Acute Comments: Patient requests dose Patient would like BPS in future Qualifiers: Contraceptive encounter type: initial prescription Contraceptive type: injectable Qualified Code(s): Z30.013 - Encounter for initial prescription of injectable contraceptive - Discharge Medications Prescriptions: OxyCODONE/APAP 5/325 [Percocet 5/325 MG] 1 each PO Q4HR PRN 5 Days #30 tablet PRN Reason: Moderate pain 4-6 Ibuprofen [Motrin] 600 mg PO Q6HR PRN #60 tablet PRN Reason: Cramping Docusate [Colace] 100 mg PO BID #60 capsule Home Medications: Docusate [Colace] 100 mg PO BID #60 capsule 10/15/17 [Rx] Ibuprofen [Motrin] 600 mg PO Q6HR PRN #60 tablet 10/15/17 [Rx] OxyCODONE/APAP 5/325 [Percocet 5/325 MG] 1 each PO Q4HR PRN 5 Days #30 tablet [Rx] Vit/FA 1 each PO DAILY tablet 10/15/17 [Rx] Allergies/Adverse Reactions: 3 Allergy/AdvReac Type Severity Reaction Status Date / Time No Known Allergies Allergy Verified 10/08/17 06:08 Data Procedures and tests throughout hospitalization: Laboratory Tests 10/13/17 10/13/17 10/13/17 05:17 05:17 06:09 WBC 16.1 H RBC 3.48 L Hgb 9.6 L Hct 29.3 L MCV 84.2 MCH 27.6 L MCHC 32.8 RDW 13.3 Plt Count 362 MPV 9.7 Immature Gran % 2.5 Seg Neutrophils % 61.7 Lymphocytes % 24.9 Monocytes % 8.6 Eosinophils % 1.6 Basophils % 0.7 Neutrophils # 9.9 H Lymphocytes # 4.0 Monocytes # 1.4 H Eosinophils # 0.3 Basophils # 0.1 Nucleated RBCs/100 WBC 0.1 H Urine Color Yellow Urine Clarity Clear Urine pH 7.0 Ur Specific [place] 1.011 Urine Protein Negative Urine Glucose (UA) Normal Urine Ketones Negative Urine Blood Negative Urine Nitrite Negative Urine Bilirubin Negative Urine Urobilinogen Normal Ur Leukocyte Esterase Negative Ur Culture Indicated? NO Urine Opiates Screen Negative Ur Barbiturates Screen Negative Ur Phencyclidine Scrn Negative Ur Amphetamines Screen Negative U Benzodiazepines Scrn Negative Urine Cocaine Screen Negative U Marijuana (THC) Screen Negative 10/14/17 05:55 WBC 17.1 H RBC 3.45 L Hgb 9.4 L Hct 29.7 L MCV 86.1 MCH 27.2 L MCHC 31.6 RDW 13.2 Plt Count 322 MPV 9.4 Immature Gran % 1.3 Seg Neutrophils % 58.0 Lymphocytes % 27.5 Monocytes % 11.7 Eosinophils % 1.1 Basophils % 0.4 Neutrophils # 9.9 H Lymphocytes # 4.7 H Monocytes # 2.0 H Eosinophils # 0.2 Basophils # 0.1 Nucleated RBCs/100 WBC 0.1 H Urine Color Urine Clarity Urine pH Ur Specific [place] Urine Protein Urine Glucose (UA) Urine Ketones Urine Blood Urine Nitrite Urine Bilirubin Urine Urobilinogen Ur Leukocyte Esterase Ur Culture Indicated? Urine Opiates Screen Ur Barbiturates Screen Ur Phencyclidine Scrn Ur Amphetamines Screen U Benzodiazepines Scrn Urine Cocaine Screen U Marijuana (THC) Screen Date of admission: 10/13/17 05:49 Primary care physician: Steve Jimenez MD Discharging clinician: Anne Morley Anticipated date of discharge: 10/15/17 - Patient Status Disposition: Home, Self-Care Condition: Good Functional capacity at discharge: independent ambulation - Discharge Instructions Follow Up With: Steve Jimenez MD [Primary Care Provider] - Candida Baca MD [Partnered Physician] - - Diet and Activity Diet: regular diet Hospital Course Procedures: [facility] report reviewed prior to discharge by TERRELL Owens Reason for admission: rupture of membranes Delivery: section Episiotomy: none Laceration: none Other procedures: none complications: none Discharge diagnosis: delivery baby: male (bottle feeding) Time Attestation: Total time spent providing and/or coordinating discharge services: Time Spent: Less than 30 minutes - VTE Reasons for not Prescribing Prophylaxis: Treatment not Indicated - Low risk for VTE Documentation of Mechanical Device: Intermittent pneumatic compression device Exam - Constitutional Vitals: Temp Pulse Resp BP Pulse Ox 97.8 F 55 16 157/89 98 10/15/17 08:11 10/15/17 08:11 10/15/17 08:11 10/15/17 08:11 10/14/17 20:05 General appearance IM: A&O X 3, pleasant, answers questions appropriately - Respiratory Respiratory exam: Present: CTAB - Cardiovascular Cardiovascular exam IM: Present: RRR, +S1, +S2 - GI/Abdominal GI/Abdominal exam IM: normal bowel sounds Incision: normal, dry, intact, dressed (steri strips) - Uterine Tone: Firm Uterus Position: 2 Fingers Below Umbilicus, Midline - Extremities Exam Extremities exam IM: Present: full ROM, normal capillary refill, normal inspection - Neurological Exam Neurological exam: alert, oriented X3, reflexes normal
== END 2017-10-15 15:15 | disposition home or self-care (01) | DRG 765 ==
LOC: 1NENULAB → 1NENUOBS 11:05
PROVIDERS: ADMIT Advanced Practice Midwife; ATTEND Advanced Practice Midwife

== ENCOUNTER 2018-07-25 03:18 | Inpatient (IN) ==
[2018-07-25] MEDS ORDERED: Acetaminophen 325 MG TABLET PO ONE (03:57)
[2018-07-25] MEDS: 0.9 % Sodium Chloride 1,000 ML IVC SCH ×2 (04:05→05:30)
[2018-07-25] MEDS ORDERED: *HR* FentaNYL (PF) 100 MCG/2 ML VIAL IVP ONE (04:08)
[2018-07-25] MEDS ORDERED: Ondansetron 4 MG/2 ML VIAL IVP ONE (04:08)
[2018-07-25 04:11] LABS: Basophils # 0.1 K/mcL (0.0-0.2); Basophils % 0.3 %; Eosinophils % 0.1 %; Hemoglobin 13.1 g/dL (11.5-15.4); Immature Granulocytes % 0.7 % (0-4); Lymphocytes # 0.9 K/mcL (0.6-4.6); Lymphocytes % 6.3 %; Mean Corpuscular HGB Conc 33.6 g/dL (31.6-35.5); Mean Corpuscular Hemoglobin 29.2 pg (28.0-33.3); Mean Corpuscular Volume 87.1 fL (83.0-100.0); Mean Platelet Volume 9.2 fL (9.4-12.4); Monocytes # 1.4 K/mcL (0.0-1.3); Monocytes % 9.6 %; Neutrophils # 12.4 K/mcL (1.6-8.9); Platelet Count 280 K/mcL (140-400); Red Blood Count 4.48 M/mcL (3.82-4.97); Red Cell Distribution Width 11.9 % (11.5-14.5)
[2018-07-25 04:29] LABS: BUN/Creatinine Ratio 16 (6-26); Blood Urea Nitrogen 11 mg/dL (6-20); Calcium 9.2 mg/dL (8.6-10.3); Carbon Dioxide 21 mEq/L (23-29); Chloride 101 mEq/L (98-107); Glucose 91 mg/dL (70-105); Osmolality,Calculated 277 (280-300); Potassium 3.5 mEq/L (3.5-5.1); Sodium 134 mEq/L (136-145); eGFR For Non-African Americans > 60 (> 60)
--- NOTE | 2018-07-25 04:49 | Emergency Department Note ---
Disposition Clinical Impression: Pyelonephritis Sepsis Qualifiers: Sepsis type: sepsis due to unspecified organism Qualified Code(s): A41.9 - Sepsis, unspecified organism Disposition: Admitted As Inpatient Condition: Fair Referrals: Steve Jimenez MD [Primary Care Provider] - Forms: ED Satisfaction Letter General Adult HPI - General Chief complaint: ED Urogenital-Female Stated complaint: abdominal pain, back pain Time Seen by Provider: 07/25/18 03:21 Source: patient, EMS Mode of arrival: EMS Limitations: no limitations Nursing Notes Reviewed: Yes Vital Signs Reviewed: Yes - History of Present Illness HPI Narrative: 27-year-old female with no significant past medical history presenting to the emergency department chief complaint of back pain, abdominal pain and fevers. Patient states 4 days ago she was diagnosed with urinary tract infection and given Bactrim for antibiotics. She states 2 days after that she started having fevers at home ranging from 102-103 degrees. She has been trying Tylenol and Motrin at home with minimal relief. Today she started having worsening suprapubic abdominal pain and right-sided back pain. Patient has had nausea and decreased oral intake. Pain Scale: 7 - Related Data Previous Rx's Medication Instructions Recorded Phenazopyridine HCl [Pyridium] 200 mg PO TIDAC #6 tab 07/23/18 Sulfamethoxazole/Trimeth DS 1 each PO BID #14 tablet 07/23/18 [Bactrim DS] Allergies Allergy/AdvReac Type Severity Reaction Status Date / Time No Known Allergies Allergy Verified 07/23/18 19:35 All systems ED: reviewed and negative except as stated. Constitutional: Reports: fever Eyes: Reports: as per HPI ENT ED: Reports: as per HPI Cardiovascular: Denies: chest pain Respiratory: Denies: dyspnea Gastrointestinal: Reports: abdominal pain, nausea Genitourinary: Reports: dysuria, frequency Musculoskeletal: Reports: as per HPI Integumentary: Reports: as per HPI Neurological: Reports: as per HPI Psychiatric: Reports: as per HPI Endocrine: Reports: as per HPI Hematological/Lymphatic: Reports: as per HPI Allergic/Immunologic: Reports: as per HPI Past Medical History - Past Medical History Attestation: Yes The following information was validated with the patient. Medical history: Reports: non-contributory Surgical history: Reports: other Psychiatric history: Reports: no psych history MEDICAL ASSISTANT INSTRUCTOR history: Reports: no MEDICAL ASSISTANT INSTRUCTOR history - Social History Smoking Status: 2nd Hand Smoke Exposure Smokeless Tobacco Status: No Alcohol use: Reports: none Drug use: Reports: none Physical Exam - General Limitations: no limitations General appearance: alert, in no apparent distress - Head Head exam: atraumatic, normocephalic, normal inspection - Eye Eye exam: Absent: scleral icterus - ENT ENT exam: mucous membranes dry - Neck Neck exam: Present: full ROM - Chest Chest inspection: Present: symmetric chest wall rise - Respiratory Respiratory exam: Present: normal lung sounds bilaterally. Absent: respiratory distress, wheezes - Cardiovascular Cardiovascular exam: Present: normal rhythm, tachycardia, normal heart sounds - Abdominal Exam Abdominal exam: Present: soft, tenderness. Absent: distention, guarding, rebound Abdominal tenderness: Present: suprapubic, moderate - Extremities Exam Extremities exam: Present: full ROM - Back Exam Back exam: Present: CVA tenderness (R). Absent: CVA tenderness (L) - Neurological Exam Neurological exam: Present: alert, oriented X3 - Psychiatric Psychiatric exam: Present: normal affect, normal mood - Skin Skin exam: Present: warm Course Course Narrative: 27-year-old female presenting for superpubic abdominal pain and right flank pain. Currently being treated for UTI with Bactrim. In the room she is alert and oriented 3. Tachycardic in the 140s and febrile at 102 degrees. Concern for sepsis due to pyelonephritis at this time. We will perform a sepsis workup including labs, lactic acid, blood cultures along with a urine analysis. We will provide the patient with 2 L of fluids, Tylenol and fentanyl for pain and Zofran for nausea. Disposition most likely admission but pending results. Patient agrees with this plan. - Reevaluation(s) Reevaluation #1: Patient's laboratory analysis shows leukocytosis but otherwise at baseline. Urinalysis shows moderate bacteria. Concern for failure of outpatient therapy now leading to pyelonephritis and sepsis. Lactic acid within normal limits. We will provide the patient with Rocephin. Patient remains alert and oriented 3 and hemodynamically stable. Fluid responsive with a decrease in the heart rate to 113. Patient hemodynamically stable. I spoke with the hospitalist environmental science program director Dr. Payan who agrees to accept the patient at this time. Patient agrees with this plan. Vital Signs Temperature 102.2 F H 07/25/18 03:21 Pulse Rate 139 07/25/18 03:21 Respiratory Rate 18 07/25/18 03:21 Blood Pressure 128/77 07/25/18 03:21 O2 Sat by Pulse Oximetry 99 07/25/18 03:21 Temperature 98.9 F 07/25/18 05:32 Pulse Rate 113 07/25/18 05:32 Respiratory Rate 18 07/25/18 05:32 Blood Pressure 126/71 07/25/18 05:32 O2 Sat by Pulse Oximetry 99 07/25/18 05:32 Oxygen Delivery Oxygen Delivery Room Air Medical Decision Making - Lab Data Result diagrams: 07/25/18 03:43 07/25/18 03:43 Lab Results 07/25/18 07/25/18 07/25/18 Range/Units 03:43 03:43 03:43 WBC 15.0 H (4.3-11.1) K/mcL RBC 4.48 (3.82-4.97) M/mcL Hgb 13.1 (11.5-15.4) g/dL Hct 39.0 (35.3-44.9) % MCV 87.1 (83.0-100.0) fL MCH 29.2 (28.0-33.3) pg MCHC 33.6 (31.6-35.5) g/dL RDW 11.9 (11.5-14.5) % Plt Count 280 (140-400) K/mcL MPV 9.2 L (9.4-12.4) fL Immature Gran % 0.7 (0-4) % Seg Neutrophils % 83.0 % Lymphocytes % 6.3 % Monocytes % 9.6 % Eosinophils % 0.1 % Basophils % 0.3 % Neutrophils # 12.4 H (1.6-8.9) K/mcL Lymphocytes # 0.9 (0.6-4.6) K/mcL Monocytes # 1.4 H (0.0-1.3) K/mcL Eosinophils # 0.0 (0.0-0.6) K/mcL Basophils # 0.1 (0.0-0.2) K/mcL Sodium 134 L (136-145) mEq/L Potassium 3.5 (3.5-5.1) mEq/L Chloride 101 (98-107) mEq/L Carbon Dioxide 21 L (23-29) mEq/L BUN 11 (6-20) mg/dL Creatinine 0.70 (0.60-1.20) mg/dL Est GFR ( Amer) > 60 (> 60) Est GFR (Non-Af Amer) > 60 (> 60) BUN/Creatinine Ratio 16 (6-26) Glucose 91 (70-105) mg/dL Calculated Osmolality 277 L (280-300) Lactic Acid 0.9 (0.5-2.2) mmol/L Calcium 9.2 (8.6-10.3) mg/dL Urine Color (Yellow) Urine Clarity (Clear) Urine pH Ur Specific [place] Urine Protein Urine Glucose (UA) Urine Ketones Urine Blood Urine Nitrite Urine Bilirubin Urine Urobilinogen Ur Leukocyte Esterase Urine Microscopic RBC (0-3) per hpf Urine Microscopic WBC (0-3) per hpf Ur Squamous Epith Cells (None-Few) per lpf Ur Transition Epith Cell (None-Few) per hpf Urine Bacteria (None-Few) per hpf Hyaline Casts (None-Few) per lpf Urine Mucus (Few) Ur Culture Indicated? (NO) 07/25/18 Range/Units 04:40 WBC (4.3-11.1) K/mcL RBC (3.82-4.97) M/mcL Hgb (11.5-15.4) g/dL Hct (35.3-44.9) % MCV (83.0-100.0) fL MCH (28.0-33.3) pg MCHC (31.6-35.5) g/dL RDW (11.5-14.5) % Plt Count (140-400) K/mcL MPV (9.4-12.4) fL Immature Gran % (0-4) % Seg Neutrophils % % Lymphocytes % % Monocytes % % Eosinophils % % Basophils % % Neutrophils # (1.6-8.9) K/mcL Lymphocytes # (0.6-4.6) K/mcL Monocytes # (0.0-1.3) K/mcL Eosinophils # (0.0-0.6) K/mcL Basophils # (0.0-0.2) K/mcL Sodium (136-145) mEq/L Potassium (3.5-5.1) mEq/L Chloride (98-107) mEq/L Carbon Dioxide (23-29) mEq/L BUN (6-20) mg/dL Creatinine (0.60-1.20) mg/dL Est GFR ( Amer) (> 60) Est GFR (Non-Af Amer) (> 60) BUN/Creatinine Ratio (6-26) Glucose (70-105) mg/dL Calculated Osmolality (280-300) Lactic Acid (0.5-2.2) mmol/L Calcium (8.6-10.3) mg/dL Urine Color [place] A (Yellow) Urine Clarity [place] A (Clear) Urine pH TNP Ur Specific [place] TNP Urine Protein TNP Urine Glucose (UA) TNP Urine Ketones TNP Urine Blood TNP Urine Nitrite TNP Urine Bilirubin TNP Urine Urobilinogen TNP Ur Leukocyte Esterase TNP Urine Microscopic RBC 50-100 H (0-3) per hpf Urine Microscopic WBC 50-100 H (0-3) per hpf Ur Squamous Epith Cells Moderate H (None-Few) per lpf Ur Transition Epith Cell Moderate H (None-Few) per hpf Urine Bacteria Moderate H (None-Few) per hpf Hyaline Casts None Seen (None-Few) per lpf Urine Mucus Moderate H (Few) Ur Culture Indicated? NO (NO)
[2018-07-25 04:58] LABS: Clarity,Urine Hazy (Clear); Color,Urine Orange (Yellow); Hyaline Casts,Urine None Seen per lpf (None-Few); RBC,Urine 50-100 per hpf (0-3); Squamous Epithelial Cell,Urine Moderate per lpf (None-Few)
[2018-07-25 04:59] LABS: Bacteria,Urine Moderate per hpf (None-Few); WBC,Urine 50-100 per hpf (0-3)
[2018-07-25 05:02] LABS: Mucus,Urine Moderate (Few); Transitional Epi Cells,Urine Moderate per hpf (None-Few)
[2018-07-25] MEDS ORDERED: cefTRIAXone 1,000 MG in Water for inj. (sterile) 20 ML 10 ML IVP ONE (05:12)
[2018-07-25] MEDS ORDERED: Ketorolac 15 MG/ML VIAL IVP ONE (05:39)
--- NOTE | 2018-07-25 05:44 | Emergency Department Note ---
Disposition Clinical Impression: Pyelonephritis Sepsis Qualifiers: Sepsis type: sepsis due to unspecified organism Qualified Code(s): A41.9 - Sepsis, unspecified organism Disposition: Admitted As Inpatient Condition: Fair Referrals: Steve Jimenez MD [Primary Care Provider] - Forms: ED Satisfaction Letter General Adult HPI - General Chief complaint: ED Urogenital-Female Stated complaint: abdominal pain, back pain Time Seen by Provider: 07/25/18 03:21 Source: patient, EMS Mode of arrival: EMS Limitations: no limitations Nursing Notes Reviewed: Yes Vital Signs Reviewed: Yes - History of Present Illness Pain Scale: 7 - Related Data Previous Rx's Medication Instructions Recorded Phenazopyridine HCl [Pyridium] 200 mg PO TIDAC #6 tab 07/23/18 Sulfamethoxazole/Trimeth DS 1 each PO BID #14 tablet 07/23/18 [Bactrim DS] Allergies Allergy/AdvReac Type Severity Reaction Status Date / Time No Known Allergies Allergy Verified 07/23/18 19:35 Constitutional: Reports: fever Eyes: Reports: as per HPI ENT ED: Reports: as per HPI Cardiovascular: Denies: chest pain Respiratory: Denies: dyspnea Gastrointestinal: Reports: abdominal pain, nausea Genitourinary: Reports: dysuria, frequency Musculoskeletal: Reports: as per HPI Integumentary: Reports: as per HPI Neurological: Reports: as per HPI Psychiatric: Reports: as per HPI Endocrine: Reports: as per HPI Hematological/Lymphatic: Reports: as per HPI Allergic/Immunologic: Reports: as per HPI Past Medical History - Past Medical History Medical history: Reports: non-contributory Surgical history: Reports: other Psychiatric history: Reports: no psych history [employer] history: Reports: no [employer] history - Social History Smoking Status: 2nd Hand Smoke Exposure Smokeless Tobacco Status: No Alcohol use: Reports: none Drug use: Reports: none Physical Exam - General Limitations: no limitations General appearance: alert, in no apparent distress Course Vital Signs Temperature 102.2 F H 07/25/18 03:21 Pulse Rate 139 07/25/18 03:21 Respiratory Rate 18 07/25/18 03:21 Blood Pressure 128/77 07/25/18 03:21 O2 Sat by Pulse Oximetry 99 07/25/18 03:21 Temperature 98.9 F 07/25/18 05:32 Pulse Rate 113 07/25/18 05:32 Respiratory Rate 18 07/25/18 05:32 Blood Pressure 126/71 07/25/18 05:32 O2 Sat by Pulse Oximetry 99 07/25/18 05:32 Oxygen Delivery Oxygen Delivery Room Air Medical Decision Making - Medical Records Medical records reviewed: Yes I reviewed the patient's medical records. - Lab Data Lab results reviewed: Yes I reviewed the patient's lab results. Result diagrams: 07/25/18 03:43 07/25/18 03:43 Lab Results 07/25/18 07/25/18 07/25/18 Range/Units 03:43 03:43 03:43 WBC 15.0 H (4.3-11.1) K/mcL RBC 4.48 (3.82-4.97) M/mcL Hgb 13.1 (11.5-15.4) g/dL Hct 39.0 (35.3-44.9) % MCV 87.1 (83.0-100.0) fL MCH 29.2 (28.0-33.3) pg MCHC 33.6 (31.6-35.5) g/dL RDW 11.9 (11.5-14.5) % Plt Count 280 (140-400) K/mcL MPV 9.2 L (9.4-12.4) fL Immature Gran % 0.7 (0-4) % Seg Neutrophils % 83.0 % Lymphocytes % 6.3 % Monocytes % 9.6 % Eosinophils % 0.1 % Basophils % 0.3 % Neutrophils # 12.4 H (1.6-8.9) K/mcL Lymphocytes # 0.9 (0.6-4.6) K/mcL Monocytes # 1.4 H (0.0-1.3) K/mcL Eosinophils # 0.0 (0.0-0.6) K/mcL Basophils # 0.1 (0.0-0.2) K/mcL Sodium 134 L (136-145) mEq/L Potassium 3.5 (3.5-5.1) mEq/L Chloride 101 (98-107) mEq/L Carbon Dioxide 21 L (23-29) mEq/L BUN 11 (6-20) mg/dL Creatinine 0.70 (0.60-1.20) mg/dL Est GFR ( Amer) > 60 (> 60) Est GFR (Non-Af Amer) > 60 (> 60) BUN/Creatinine Ratio 16 (6-26) Glucose 91 (70-105) mg/dL Calculated Osmolality 277 L (280-300) Lactic Acid 0.9 (0.5-2.2) mmol/L Calcium 9.2 (8.6-10.3) mg/dL Urine Color (Yellow) Urine Clarity (Clear) Urine pH Ur Specific [place] Urine Protein Urine Glucose (UA) Urine Ketones Urine Blood Urine Nitrite Urine Bilirubin Urine Urobilinogen Ur Leukocyte Esterase Urine Microscopic RBC (0-3) per hpf Urine Microscopic WBC (0-3) per hpf Ur Squamous Epith Cells (None-Few) per lpf Ur Transition Epith Cell (None-Few) per hpf Urine Bacteria (None-Few) per hpf Hyaline Casts (None-Few) per lpf Urine Mucus (Few) Ur Culture Indicated? (NO) 07/25/18 Range/Units 04:40 WBC (4.3-11.1) K/mcL RBC (3.82-4.97) M/mcL Hgb (11.5-15.4) g/dL Hct (35.3-44.9) % MCV (83.0-100.0) fL MCH (28.0-33.3) pg MCHC (31.6-35.5) g/dL RDW (11.5-14.5) % Plt Count (140-400) K/mcL MPV (9.4-12.4) fL Immature Gran % (0-4) % Seg Neutrophils % % Lymphocytes % % Monocytes % % Eosinophils % % Basophils % % Neutrophils # (1.6-8.9) K/mcL Lymphocytes # (0.6-4.6) K/mcL Monocytes # (0.0-1.3) K/mcL Eosinophils # (0.0-0.6) K/mcL Basophils # (0.0-0.2) K/mcL Sodium (136-145) mEq/L Potassium (3.5-5.1) mEq/L Chloride (98-107) mEq/L Carbon Dioxide (23-29) mEq/L BUN (6-20) mg/dL Creatinine (0.60-1.20) mg/dL Est GFR ( Amer) (> 60) Est GFR (Non-Af Amer) (> 60) BUN/Creatinine Ratio (6-26) Glucose (70-105) mg/dL Calculated Osmolality (280-300) Lactic Acid (0.5-2.2) mmol/L Calcium (8.6-10.3) mg/dL Urine Color [place] A (Yellow) Urine Clarity Hazy A (Clear) Urine pH TNP Ur Specific [place] TNP Urine Protein TNP Urine Glucose (UA) TNP Urine Ketones TNP Urine Blood TNP Urine Nitrite TNP Urine Bilirubin TNP Urine Urobilinogen TNP Ur Leukocyte Esterase TNP Urine Microscopic RBC 50-100 H (0-3) per hpf Urine Microscopic WBC 50-100 H (0-3) per hpf Ur Squamous Epith Cells Moderate H (None-Few) per lpf Ur Transition Epith Cell Moderate H (None-Few) per hpf Urine Bacteria Moderate H (None-Few) per hpf Hyaline Casts None Seen (None-Few) per lpf Urine Mucus Moderate H (Few) Ur Culture Indicated? NO (NO) Attestation Statement - Attestation Attestation: I, Lance Morgan MD, personally evaluated this patient and discussed their management with the resident physician. I reviewed the resident's note and agree with the documented findings, medical decision making, and plan of care. 27-year-old female persisted emergency department with a complaint that she was started on Bactrim 4 days ago for urinary tract infection. She states since then she has just gotten progressively worse. For the last 3 days she has had fever intermittently which seems to be getting worse. Today she developed nausea and vomiting. She complains of right flank pain and dysuria. On examination patient is a well-developed thin young female in no acute distress. She is alert and oriented 3. There is no cyanosis or diaphoresis. Breath sounds are clear and equal bilaterally. Heart regular with a moderate tachycardia. Abdomen soft with mild right mid abdominal tenderness. Moderate right CVA tenderness. Labs reviewed. IV antibiotics initiated. The hospitalist, Dr. Payan, was consulted and accepted admission of the patient.
[2018-07-25] MEDS ORDERED: 0.9 % Sodium Chloride 1,000 ML IVC ONE (07:47)
--- NOTE | 2018-07-25 07:50 | Internal Med History&Physical ---
Date of Encounter: 07/25/18 Time of Encounter: 07:48 Internal Medicine - H&P: HPI Chief complaint: fever, back pain Admitted From: Home Plans for Post Hospital Care: Home History of present illness: Ms. Simms is a 27 year old female with no significant past medical history who came in for complaint of severe back pain nausea and vomiting. Patient was seen at urgent care about 4 days ago where she was started on treatment for UTI with Bactrim. Denies any recent UTIs. Last and only UTI she could remember was abou t 10 months ago during her . She denies any previous STDs. Last tested was during her . She is not currently sexually active. Patient had tubal ligation in December. Patient symptoms started with some burning urination which later progressed to right sided back pain which started radiating to her right flank and had fever associated with it. Pain was severe intensity and sharp in nature. 7/10 in intensity. Started having nausea vomiting yesterday night which made her to come to the ER. Patient received 1 dose of ceftriaxone and 1 L of IV fluids in ER and pain and nausea medication. Lab data significant for leukocytosis, mild hyponatremia. Fever of 102 is noted patient was admitted for IV antibiotics. On interview both mention history was confirmed. Patient did complain of ongoing back pain radiating to right flank. Is mildly nauseous. She denies being currently sexually active and that she could be . Denies any difficulty breathing, headaches, tingling or numbness. Denies any difficulty passing urine. Past Med Surg Social Fam HX - Past Medical History Medical history: non-contributory Additional medical history: eye inflamation Psychiatric history: no psych history - Past Surgical History Surgical History: other Additional surgical history: Elbow fractures fixation, tubal ligation - Social History Smoking Status: 2nd Hand Smoke Exposure Smokeless Tobacco Status: No Alcohol use: none Drug use: none Current living situation: With Family - Family History Father Adopted: No Age: 51 Living Status: Still Living Hx Family Cardiac Disorders: Yes (HTN) Hx Family Respiratory Disorders: No Hx Family Cancer: No Hx Family GI Disorders: No Hx Family Endocrine Disorder: No Hx Family Neuromuscular Disorders: No Hx Family Neurologic Disorders: No Hx Family HEENT Disorders: No Hx Family Autoimmune Disorders: No Mother Age: 47 Living Status: Still Living Hx Family Cardiac Disorders: Yes (HTN) Internal Medicine - H&P: Meds Phenazopyridine HCl [Pyridium] 200 mg PO TIDAC #6 tab 07/23/18 [Rx] Sulfamethoxazole/Trimeth DS [Bactrim DS] 1 each PO BID #14 tablet 07/23/18 [Rx] Allergy/AdvReac Type Severity Reaction Status Date / Time No Known Allergies Allergy Verified 07/23/18 19:35 All Systems PM: A 10-system review of systems was performed and is negative for pertinent findings except as documented above in the HPI. - Constitutional Vitals: Temp Pulse Resp BP Pulse Ox 98.3 F 98 16 110/71 98 07/25/18 07:06 07/25/18 07:06 07/25/18 07:06 07/25/18 07:06 07/25/18 07:06 Exam: Constitutional: Vitals as noted. Conversant. No Apparent Distress. mildly nauseous. Eyes : Sclera white, conjunctiva clear, no lid lag, [place]. ENT : Grossly normal hearing. Oropharyngeal exam unremarkable. Moist mucus membranes. No JVD, no cervical lymphadenopathy. no thyromegaly or mass. Respiratory : Clear to auscultation bilaterally. No accessory muscle use, rales, rhonchi or wheezes Cardiovascular : tachycardic, normal +S1, +S2. no murmur, gallop, rubs. No ch est wall tenderness GI/Abdominal : Soft, Mild RLQ tenderness, Non-distended, normal bowel sounds, no peritoneal signs. Musculoskeletal: no deformity noted. no edema or cyanosis. warm extremities, pulses palpable and symmetrical in UE/LE. no calf tenderness. Neurological: AO X3, CN II-XII grossly intact, grossly normal motor and sensory exam. Skin: No skin rash noted. Internal Med - H&P Results - Labs CBC & Chem 7: 07/25/18 03:43 07/25/18 03:43 Labs: Short CBC 07/25/18 Range/Units 03:43 WBC 15.0 H (4.3-11.1) K/mcL Hgb 13.1 (11.5-15.4) g/dL Hct 39.0 (35.3-44.9) % Plt Count 280 (140-400) K/mcL Neutrophils # 12.4 H (1.6-8.9) K/mcL BMP 07/25/18 03:43 Sodium 134 L Potassium 3.5 Chloride 101 Carbon Dioxide 21 L BUN 11 Creatinine 0.70 Glucose 91 Calcium 9.2 Urine 07/25/18 Range/Units 04:40 Urine Color [place] A (Yellow) Urine Clarity Hazy A (Clear) Urine pH TNP Ur Specific [place] TNP Urine Protein TNP Urine Glucose (UA) TNP - Assessment and plan (1) Pyelonephritis Current Visit: Yes Status: Acute Assessment and plan: - We will do 1 more liter of IV normal saline and continue with lactated Ringer as maintenance - Continue patient on ceftriaxone 1 g daily - Follow-up urine and blood cultures - We will consider obtaining CT abdomen and pelvis if patient had fever spikes after 24 hours to rule out abscesses - We will obtain gonorrhea and chlamydia urinary testing (2) Sepsis Current Visit: Yes Status: Acute Assessment and plan: - Patient with tachycardia, fever and possible pyelonephritis - Organism unclear as of now. Follow-up urine and blood culture - Management as above Qualifiers: Sepsis type: sepsis due to unspecified organism Qualified Code(s): A41.9 - Sepsis, unspecified organism - Time Spent With Patient Total time spent is greater than 50% in coordination of care (as documented) at patient's floor/unit and/or counseling patient:
[2018-07-25] MEDS: Ondansetron 4 MG/2 ML VIAL IVP PRN ×2 (09:18→19:51)
[2018-07-25] MEDS: Ketorolac 15 MG/ML VIAL IM PRN ×3 (09:18→22:44)
[2018-07-25] MEDS: Ringers Solution, Lactated 1,000 ML IVC SCH (09:19)
[2018-07-25] MEDS: *HR* Heparin 5,000 UNIT/ML VIAL SQ SCH ×2 (16:42→21:22)
[2018-07-25] MEDS: *HR* OxyCODONE/APAP 5/325 TABLET PO PRN (19:48)
[2018-07-25 21:25] LABS: Chlamydia Trachomatis DNA Ur NOT DETECTED (Not Detect)
[2018-07-26] MEDS: Ringers Solution, Lactated 1,000 ML IVC SCH (02:38)
[2018-07-26] MEDS: Acetaminophen 325 MG TABLET PO PRN ×2 (02:38→09:26)
[2018-07-26] MEDS: *HR* Heparin 5,000 UNIT/ML VIAL SQ SCH ×2 (05:21→15:06)
[2018-07-26] MEDS: *HR* OxyCODONE/APAP 5/325 TABLET PO PRN ×2 (05:23→15:06)
[2018-07-26 05:52] LABS: Basophils % 0.3 %; Eosinophils # 0.1 K/mcL (0.0-0.6); Eosinophils % 0.5 %; Hematocrit 30.6 % (35.3-44.9); Immature Granulocytes % 0.5 % (0-4); Lymphocytes # 1.4 K/mcL (0.6-4.6); Lymphocytes % 12.5 %; Mean Corpuscular Hemoglobin 29.5 pg (28.0-33.3); Mean Corpuscular Volume 86.7 fL (83.0-100.0); Mean Platelet Volume 9.2 fL (9.4-12.4); Monocytes # 1.6 K/mcL (0.0-1.3); Monocytes % 14.4 %; Neutrophils # 7.9 K/mcL (1.6-8.9); Platelet Count 250 K/mcL (140-400); Red Blood Count 3.53 M/mcL (3.82-4.97); Red Cell Distribution Width 11.9 % (11.5-14.5); Segmented Neutrophils % 71.8 %
[2018-07-26 05:53] LABS: Hemoglobin 10.4 g/dL (11.5-15.4)
[2018-07-26 06:05] LABS: BUN/Creatinine Ratio 19 (6-26); Blood Urea Nitrogen 8 mg/dL (6-20); Calcium 8.4 mg/dL (8.6-10.3); Carbon Dioxide 21 mEq/L (23-29); Chloride 108 mEq/L (98-107); Glucose 91 mg/dL (70-105); Osmolality,Calculated 282 (280-300); Potassium 3.5 mEq/L (3.5-5.1); Sodium 137 mEq/L (136-145); eGFR For Non-African Americans > 60 (> 60)
[2018-07-26] MEDS: Ketorolac 15 MG/ML VIAL IM PRN ×2 (06:13→11:46)
[2018-07-26] MEDS: Ondansetron 4 MG/2 ML VIAL IVP PRN (06:13)
[2018-07-26] MEDS ORDERED: cefTRIAXone 1,000 MG in Water for inj. (sterile) 20 ML 10 ML IVP SCH (09:00)
--- NOTE | 2018-07-26 11:09 | Internal Med Progress Note ---
Hospitalist Progress Note - Encounter Date of Encounter: 07/26/18 Time of Encounter: 11:07 - Subjective Interval History: Patient reported one episode of fever overnight, she reported improved back pain. - Exam Vitals: Temp Pulse Resp BP Pulse Ox 98.7 F 99 16 121/73 98 07/26/18 07:11 07/26/18 07:11 07/26/18 07:11 07/26/18 07:11 07/26/18 07:11 Exam: PHYSICAL EXAMINATION: GENERAL APPEARANCE: The patient is alert, oriented and in no acute distress. HEENT: Head is normocephalic. The sinuses are nontender. Pupils are equal and reactive. The nares are patent. Oropharynx clear without lesions. NECK: Supple without lymphadenopathy. HEART: Regular rate and rhythm. LUNGS: No crackles or wheezes are heard. ABDOMEN: Soft, nontender, nondistended with good bowel sounds heard. Inguinal area is normal. EXTREMITIES: Without cyanosis, clubbing or edema. NEUROLOGICAL: Gross nonfocal. SKIN: Warm and dry without any rash. - Assessment and Plan (1) Pyelonephritis Current Visit: Yes Status: Acute Assessment and Plan: - We will do 1 more liter of IV normal saline and continue with lactated Ringer as maintenance - Continue patient on ceftriaxone 1 g daily - Follow-up urine and blood cultures - gonorrhea and chlamydia urinary testing negative (2) Sepsis Current Visit: Yes Status: Acute Assessment and Plan: - Patient with tachycardia, fever and possible pyelonephritis - Organism unclear as of now. Follow-up urine and blood culture - Management as above - Time Spent with Patient Total time spent is greater than 50% in coordination of care (as documented) at patient's floor/unit and/or counseling patient: Greater than 35 minutes Plan of Care Discussed with: patient Internal Medicine: Result - Labs CBC & Chem 7: 07/26/18 05:07 07/26/18 05:07 Labs: Short CBC 07/26/18 Range/Units 05:07 WBC 11.0 (4.3-11.1) K/mcL Hgb 10.4 L D (11.5-15.4) g/dL Hct 30.6 L (35.3-44.9) % Plt Count 250 (140-400) K/mcL Neutrophils # 7.9 (1.6-8.9) K/mcL BMP 07/26/18 05:07 Sodium 137 Potassium 3.5 Chloride 108 H Carbon Dioxide 21 L BUN 8 Creatinine 0.43 L Glucose 91 Calcium 8.4 L Consult Discharge Plan - Plan Referrals: Steve Jimenez MD [Primary Care Provider] - 08/02/18 1:00 pm (2) Sepsis Qualifiers: Sepsis type: sepsis due to unspecified organism Qualified Code(s): A41.9 - Sepsis, unspecified organism
[2018-07-26 11:31] VITALS: BP 138/80
--- NOTE | 2018-07-26 14:19 | Discharge Summary ---
- NOTES TO OUTPATIENT PROVIDER Notes to Outpatient Provider: f/u with PCP within 3 days. Orders not resulted at time of discharge: Pending orders 07/25/18 04:28 Culture,Blood [BC] Stat 07/25/18 04:40 Culture,Urine [RM] Stat 07/27/18 04:00 BMP [Basic Metabolic Panel] AM 0400 Complete Blood Count [HEME] AM 0400 Date of Encounter: 07/26/18 Time of Encounter: 14:16 - Discharge Diagnosis (1) Pyelonephritis Priority: Primary Status: Acute (2) Sepsis Priority: Primary Status: Acute Qualifiers: Sepsis type: sepsis due to unspecified organism Qualified Code(s): A41.9 - Sepsis, unspecified organism Hospital course: Ms. Simms is a 27 year old female with no significant past medical history who came in for complaint of severe back pain nausea and vomiting. Patient was seen at urgent care about 4 days ago where she was started on treatment for UTI with Bactrim. Denies any recent UTIs. Last and only UTI she could remember was about 10 months ago during her . She denies any previous STDs. Last tested was during her . She is not currently sexually active. Patient had tubal ligation in December. Patient symptoms started with some burning urination which later progressed to right sided back pain which started radiating to her right flank and had fever associated with it. Pain was severe intensity and sharp in nature. 7/10 in intensity. Started having nausea vomiting yesterday night which made her to come to the ER. Patient received 1 dose of ceftriaxone and 1 L of IV fluids in ER and pain and nausea medication. Lab data significant for leukocytosis, mild hyponatremia. Fever of 102 is noted patient was admitted for IV antibiotics. On interview both mention history was confirmed. Patient did complain of ongoing back pain radiating to right flank. Is mildly nauseous. She denies being currently sexually active and that she could be . Denies any difficulty breathing, headaches, tingling or numbness. Denies any difficulty passing urine. Pt was started on IV Rocephin and fever, back pain have improved. Plan was to continue IV abx for 48 hours and then switch to oral. However, she stated she has family issues and insisted in going home. After discussed all the risk of possible complications, pt will be discharged home today. She was instructed to continue oral abx for 12 more days. f/u with PCP within 3 days. Discharge discussed with: patient Time spent discussing smoking cessation with patient: more than 10 minutes - Time Spent with Patient Total time spent providing and/or coordinating discharge services:45 mins. Greater than 30 minutes - Discharge Medications Prescriptions: OxyCODONE/APAP 5/325 [Percocet 5/325 MG] 1 each PO Q8HR PRN 3 Days #10 tablet PRN Reason: Pain levoFLOXacin [Levaquin] 750 mg PO DAILY #12 tablet Home Medications: OxyCODONE/APAP 5/325 [Percocet 5/325 MG] 1 each PO Q8HR PRN 3 Days #10 tablet 07/26/18 [Rx] levoFLOXacin [Levaquin] 750 mg PO DAILY #12 tablet 07/26/18 [Rx] Allergies/Adverse Reactions: Allergy/AdvReac Type Severity Reaction Status Date / Time No Known Allergies Allergy Verified 07/23/18 19:35 Date of admission: 07/25/18 10:12 Primary care physician: Steve Jimenez MD Anticipated date of discharge: 07/26/18 - Constitutional Vitals: Temp Pulse Resp BP Pulse Ox 98.5 F 105 16 138/80 100 07/26/18 11:29 07/26/18 11:29 07/26/18 11:29 07/26/18 11:29 07/26/18 11:29 General appearance: Present: A&O X 3 Exam: PHYSICAL EXAMINATION: GENERAL APPEARANCE: The patient is alert, oriented and in no acute distress. HEENT: Head is normocephalic. The sinuses are nontender. Pupils are equal and reactive. The nares are patent. Oropharynx clear without lesions. NECK: Supple without lymphadenopathy. HEART: Regular rate and rhythm. LUNGS: No crackles or wheezes are heard. ABDOMEN: Soft, nontender, nondistended with good bowel sounds heard. Inguinal area is normal. EXTREMITIES: Without cyanosis, clubbing or edema. NEUROLOGICAL: Gross nonfocal. SKIN: Warm and dry without any rash. - Patient Status Disposition: Home, Self-Care Condition: Fair Functional capacity at discharge: independent ambulation Overall status at discharge: patient is not back to baseline - Discharge Instructions Follow Up With: Steve Jimenez MD [Primary Care Provider] - 08/02/18 1:00 pm - Diet and Activity Activity: resume usual activities as tolerated Diet: advance to your usual diet
== END 2018-07-26 15:49 | disposition home or self-care (01) | DRG 872 ==
LOC: EMEROOARM 03:18 → 3BNU 03:18
PROVIDERS: ADMIT Family Medicine; ATTEND Family Medicine

== ENCOUNTER 2019-03-07 18:17 | Inpatient (IN) ==
[2019-03-07] MEDS ORDERED: 0.9 % Sodium Chloride 1,000 ML ONE ×2 (18:42→18:46)
[2019-03-07] MEDS: 0.9 % Sodium Chloride 1,000 ML IVC SCH ×2 (18:48→19:48)
[2019-03-07 18:59] LABS: Basophils # 0.1 K/mcL (0.0-0.2); Basophils % 0.5 %; Eosinophils # 0.2 K/mcL (0.0-0.6); Eosinophils % 1.6 %; Hematocrit 36.8 % (35.3-44.9); Hemoglobin 12.6 g/dL (11.5-15.4); Immature Granulocytes % 0.4 % (0-4); Lymphocytes # 1.4 K/mcL (0.6-4.6); Lymphocytes % 9.9 %; Mean Corpuscular HGB Conc 34.2 g/dL (31.6-35.5); Mean Corpuscular Hemoglobin 30.1 pg (28.0-33.3); Mean Corpuscular Volume 87.8 fL (83.0-100.0); Mean Platelet Volume 8.9 fL (9.4-12.4); Monocytes # 0.5 K/mcL (0.0-1.3); Monocytes % 3.3 %; Neutrophils # 11.6 K/mcL (1.6-8.9); Platelet Count 368 K/mcL (140-400); Red Blood Count 4.19 M/mcL (3.82-4.97); Red Cell Distribution Width 11.7 % (11.5-14.5); Segmented Neutrophils % 84.3 %; White Blood Count 13.7 K/mcL (4.3-11.1)
[2019-03-07] MEDS ORDERED: cefTRIAXone 1,000 MG in Water for inj. (sterile) 10 ML IVP ONE (19:00)
--- NOTE | 2019-03-07 19:03 | Emergency Department Note ---
Disposition Clinical Impression: Colitis UTI (urinary tract infection) Qualifiers: Urinary tract infection type: acute cystitis Hematuria presence: with hematuria Qualified Code(s): N30.01 - Acute cystitis with hematuria Abdominal pain Qualifiers: Abdominal location: left upper quadrant Qualified Code(s): R10.12 - Left upper quadrant pain Sepsis Qualifiers: Sepsis type: sepsis due to unspecified organism Sepsis acute organ dysfunction status: without acute organ dysfunction Qualified Code(s): A41.9 - Sepsis, unspecified organism Disposition: Admitted As Inpatient Condition: Good Referrals: Steve Jimenez MD [Primary Care Provider] - Forms: ED Satisfaction Letter, Work/School Release Time of Disposition: 21:15 General Adult HPI - General Chief complaint: ED Abdominal Pain Stated complaint: abd pain Time Seen by Provider: 03/07/19 18:36 Source: patient Limitations: no limitations Nursing Notes Reviewed: Yes Vital Signs Reviewed: Yes - History of Present Illness HPI Narrative: Female patient presents emergency complaining of not feeling well for the past week. States that she developed abdominal pain and a fever today. States that she has had intermittent loose stools over the past week. Denies any significant past medical history. Does report a history of a tubal ligation. As well as calcium deficiency which is caused her to have a cane teeth. Denies any IV drug use or drug use in general. Denies any alcohol use. Denies smoking. Reports that she now has left upper quadrant abdominal pain. Denies any vomiting. Pain Scale: 9 - Related Data Previous Rx's Medication Instructions Recorded levoFLOXacin [Levaquin] 750 mg PO DAILY #12 tablet 07/26/18 Naproxen [Naprosyn] 500 mg PO BID #12 tablet 11/13/18 Ondansetron ODT [Zofran ODT] 4 mg SL Q8HR #10 tab.rapdis 11/13/18 Allergies Allergy/AdvReac Type Severity Reaction Status Date / Time No Known Allergies Allergy Verified 03/07/19 18:20 All systems ED: reviewed and negative except as stated. Review of Systems: As Per HPI Constitutional: Reports: fever, chills ENT ED: Denies: congestion Cardiovascular: Denies: chest pain, palpitations Respiratory: Denies: cough, dyspnea Gastrointestinal: Reports: abdominal pain, diarrhea. Denies: nausea, vomiting, hematemesis, melena, hematochezia Genitourinary: Reports: dysuria (Mild.). Denies: urgency, frequency, hematuria Musculoskeletal: Denies: back pain Past Medical History - Past Medical History Attestation: Yes The following information was validated with the patient. 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 No abscess is noted. No pain to palpation of her teeth.) - Neck Neck exam: Present: normal inspection, full ROM, trachea midline - Chest Chest inspection: Present: normal inspection, symmetric chest wall rise - Respiratory Respiratory exam: Present: normal lung sounds bilaterally. Absent: respiratory distress, accessory muscle use - Cardiovascular Cardiovascular exam: Present: normal rhythm, tachycardia, normal heart sounds - Abdominal Exam Abdominal exam: Present: soft, tenderness (2 epigastric region and left upper quadrant.). Absent: distention, guarding, rebound, rigidity, organomegaly, Mur phy's sign, Rovsing's sign, tenderness at McBurney's Point - Extremities Exam Extremities exam: Present: normal inspection, full ROM, normal capillary refill. Absent: tenderness, pedal edema - Back Exam Back exam: Present: normal inspection, full ROM. Absent: tenderness - Neurological Exam Neurological exam: Present: alert, oriented X3 - Psychiatric Psychiatric exam: Present: normal affect, normal mood - Skin Skin exam: Present: warm, dry, intact, normal color Course Course Narrative: Patient tachycardic and complaining of abdominal pain. Does have pain to palpation of the left upper quadrant epigastric region. No rigidity. Non- peritoneal. No pain to palpation of the lower quadrant. Does report some occasional dysuria. States that she felt like she got a fever today. Was chilling. The abdominal pain started today as well. States that she has however had loose stools for the past week. Denies any cough or congestion. Denies any chest pain. Has not tried anything to make this better. We will provide patient with 2 L of fluid and treat her with Rocephin for a presumed infection of her urine. We will get a CT of her abdomen secondary to the pain of to palpation in the left upper quadrant epigastric region. - Reevaluation(s) Reevaluation #1: Patient nitrite positive on urinalysis. CT of her abdomen is still pending at this time. Mild leukocytosis. Heart rate is responding appropriately to fluids. Time: 20:30 Reevaluation #2: Patient CT with findings concerning for possible colitis. Patient did have some diarrhea previously. We did place her on Rocephin for urosepsis. We will be admitting to the hospital. Time: 21:03 - Consultations Consultation #1: Dr Alfaro accepted Pt in stable condition. Time: 21:14 Vital Signs Temperature 103.1 F H 03/07/19 18:20 Pulse Rate 154 03/07/19 18:20 Respiratory Rate 20 03/07/19 18:20 Blood Pressure 127/79 03/07/19 18:20 O2 Sat by Pulse Oximetry 97 03/07/19 18:20 Temperature 103.1 F H 03/07/19 18:42 Pulse Rate 124 03/07/19 19:51 Respiratory Rate 14 03/07/19 19:51 Blood Pressure 128/81 03/07/19 19:51 O2 Sat by Pulse Oximetry 100 03/07/19 19:51 Oxygen Delivery Oxygen Delivery Room Air Medical Decision Making - Medical Records Medical records reviewed: Yes I reviewed the patient's medical records. - Lab Data Lab results reviewed: Yes I reviewed the patient's lab results. Result diagrams: 03/07/19 18:39 03/07/19 18:39 Lab Results 03/07/19 03/07/19 03/07/19 Range/Units 18:27 18:27 18:39 WBC 13.7 H (4.3-11.1) K/mcL RBC 4.19 (3.82-4.97) M/mcL Hgb 12.6 (11.5-15.4) g/dL Hct 36.8 (35.3-44.9) % MCV 87.8 (83.0-100.0) fL MCH 30.1 (28.0-33.3) pg MCHC 34.2 (31.6-35.5) g/dL RDW 11.7 (11.5-14.5) % Plt Count 368 (140-400) K/mcL MPV 8.9 L (9.4-12.4) fL Immature Gran % 0.4 (0-4) % Seg Neutrophils % 84.3 % Lymphocytes % 9.9 % Monocytes % 3.3 % Eosinophils % 1.6 % Basophils % 0.5 % Neutrophils # 11.6 H (1.6-8.9) K/mcL Lymphocytes # 1.4 (0.6-4.6) K/mcL Monocytes # 0.5 (0.0-1.3) K/mcL Eosinophils # 0.2 (0.0-0.6) K/mcL Basophils # 0.1 (0.0-0.2) K/mcL Sodium (136-145) mEq/L Potassium (3.5-5.1) mEq/L Chloride (98-107) mEq/L Carbon Dioxide (23-29) mEq/L BUN (6-20) mg/dL Creatinine (0.60-1.20) mg/dL Est GFR ( Amer) (> 60) Est GFR (Non-Af Amer) (> 60) BUN/Creatinine Ratio (6-26) Glucose (70-105) mg/dL Calculated Osmolality (280-300) Lactic Acid (0.5-2.2) mmol/L Calcium (8.6-10.3) mg/dL Phosphorus (2.7-4.5) mg/dL Magnesium (1.6-2.6) mg/dL Total Bilirubin (0.3-1.0) mg/dL Direct Bilirubin (0.0-0.2) mg/dL Indirect Bilirubin (0.0-1.2) mg/dL AST (13-39) Units/L ALT (7-52) Units/L Alkaline Phosphatase (34-104) Units/L Troponin I (< 0.04) ng/mL Serum Total Protein (6.4-8.9) g/dL Albumin (3.5-5.7) g/dL Globulin (2.4-3.5) g/dL Albumin/Globulin Ratio (1.1-2.2) Urine Color Yellow (Yellow) Urine Clarity Turbid A (Clear) Urine pH 6.0 (5.0-8.0) pH Units Ur Specific [place] 1.017 (1.010-1.025) Urine Protein 30 H (Neg-Trace) mg/dL Urine Glucose (UA) Normal (Normal) mg/dL Urine Ketones Negative (Negative) mg/dL Urine Blood Moderate H (Negative) Urine Nitrite Positive A (Negative) Urine Bilirubin Negative (Negative) Urine Urobilinogen Normal (Normal) mg/dL Ur Leukocyte Esterase Large H (Negative) Urine Microscopic RBC 5-15 H (0-3) per hpf Urine Microscopic WBC TNTC H (0-3) per hpf Ur Squamous Epith Cells Many H (None-Few) per lpf Urine Bacteria Many H (None-Few) per hpf Ur Culture Indicated? YES A (NO) Urine Test Negative (Negative) 03/07/19 03/07/19 Range/Units 18:39 18:39 WBC (4.3-11.1) K/mcL RBC (3.82-4.97) M/mcL Hgb (11.5-15.4) g/dL Hct (35.3-44.9) % MCV (83.0-100.0) fL MCH (28.0-33.3) pg MCHC (31.6-35.5) g/dL RDW (11.5-14.5) % Plt Count (140-400) K/mcL MPV (9.4-12.4) fL Immature Gran % (0-4) % Seg Neutrophils % % Lymphocytes % % Monocytes % % Eosinophils % % Basophils % % Neutrophils # (1.6-8.9) K/mcL Lymphocytes # (0.6-4.6) K/mcL Monocytes # (0.0-1.3) K/mcL Eosinophils # (0.0-0.6) K/mcL Basophils # (0.0-0.2) K/mcL Sodium 137 (136-145) mEq/L Potassium 3.6 (3.5-5.1) mEq/L Chloride 105 (98-107) mEq/L Carbon Dioxide 26 (23-29) mEq/L BUN 10 (6-20) mg/dL Creatinine 0.70 (0.60-1.20) mg/dL Est GFR ( Amer) > 60 (> 60) Est GFR (Non-Af Amer) > 60 (> 60) BUN/Creatinine Ratio 14 (6-26) Glucose 88 (70-105) mg/dL Calculated Osmolality 282 (280-300) Lactic Acid 1.1 (0.5-2.2) mmol/L Calcium 9.2 (8.6-10.3) mg/dL Phosphorus 2.9 (2.7-4.5) mg/dL Magnesium 1.8 (1.6-2.6) mg/dL Total Bilirubin 0.5 (0.3-1.0) mg/dL Direct Bilirubin 0.1 (0.0-0.2) mg/dL Indirect Bilirubin 0.4 (0.0-1.2) mg/dL AST 13 (13-39) Units/L ALT 7 (7-52) Units/L Alkaline Phosphatase 69 (34-104) Units/L Troponin I < 0.03 (< 0.04) ng/mL Serum Total Protein 6.9 (6.4-8.9) g/dL Albumin 4.2 (3.5-5.7) g/dL Globulin 2.7 (2.4-3.5) g/dL Albumin/Globulin Ratio 1.6 (1.1-2.2) Urine Color (Yellow) Urine Clarity (Clear) Urine pH (5.0-8.0) pH Units Ur Specific [place] (1.010-1.025) Urine Protein (Neg-Trace) mg/dL Urine Glucose (UA) (Normal) mg/dL Urine Ketones (Negative) mg/dL Urine Blood (Negative) Urine Nitrite (Negative) Urine Bilirubin (Negative) Urine Urobilinogen (Normal) mg/dL Ur Leukocyte Esterase (Negative) Urine Microscopic RBC (0-3) per hpf Urine Microscopic WBC (0-3) per hpf Ur Squamous Epith Cells (None-Few) per lpf Urine Bacteria (None-Few) per hpf Ur Culture Indicated? (NO) Urine Test (Negative) - Radiology Data Radiology results reviewed: Yes I reviewed the patient's radiology results. Chest X-Ray 03/07/19 20:13 IMPRESSION: Subtle streaky linear opacity in left lung base which may reflect atelectasis or pneumonia in the appropriate clinical setting.. No other acute cardiopulmonary findings. D/ / Susan Jay MD / Susan Jya MD Interpreting Provider: Susan Jay MD Abdomen/Pelvis CT 03/07/19 20:39 IMPRESSION: Mural thickening involving the descending sigmoid colon may relate to underdistention. Colitis could give a similar appearance. Please correlate exam findings and history. Bilateral renal calculi. No hydronephrosis. Trace free fluid dependent pelvis is likely physiologic. Please correlate exam findings and history. D/ / Jimbo Rodriguez / Jimbo Rodriguez Interpreting Provider: Jimbo Rodriguez - EKG Data EKG #1 EKG attestation: Yes I reviewed and interpreted this EKG. EKG results narrative: Sinus tachycardia at a rate of 150. NH interval was 86. QRS duration is 76. QT is 321. QTC is 508. No signs of acute ischemia. Good R-wave progression. No signs of WPW or Brugada. No significant change from previous EKG dated 06/18/2015. Patient did have T-wave inversions in leads 3 at that time and still does now.
[2019-03-07 19:22] LABS: Alanine Aminotransferase 7 Units/L (7-52); Albumin 4.2 g/dL (3.5-5.7); Albumin/Globulin Ratio 1.6 (1.1-2.2); Alkaline Phosphatase 69 Units/L (34-104); Aspartate Amino Transferase 13 Units/L (13-39); BUN/Creatinine Ratio 14 (6-26); Bilirubin,Direct 0.1 mg/dL (0.0-0.2); Bilirubin,Indirect 0.4 mg/dL (0.0-1.2); Bilirubin,Total 0.5 mg/dL (0.3-1.0); Blood Urea Nitrogen 10 mg/dL (6-20); Calcium 9.2 mg/dL (8.6-10.3); Carbon Dioxide 26 mEq/L (23-29); Chloride 105 mEq/L (98-107); Globulin 2.7 g/dL (2.4-3.5); Glucose 88 mg/dL (70-105); Magnesium 1.8 mg/dL (1.6-2.6); Osmolality,Calculated 282 (280-300); Phosphorous 2.9 mg/dL (2.7-4.5); Potassium 3.6 mEq/L (3.5-5.1); Sodium 137 mEq/L (136-145); Total Protein 6.9 g/dL (6.4-8.9); eGFR For African Americans > 60 (> 60); eGFR For Non-African Americans > 60 (> 60)
[2019-03-07 19:23] LABS: Troponin I < 0.03 ng/mL (< 0.04)
[2019-03-07 19:35] LABS: Bilirubin,Urine Negative (Negative); Blood,Urine Moderate (Negative); Clarity,Urine Turbid (Clear); Color,Urine Yellow (Yellow); Glucose,Urine (UA) Normal (Normal); Ketones,Urine Negative (Negative); Leukocyte Esterase,Urine Large (Negative); Nitrite,Urine Positive (Negative); Protein,Urine 30 mg/dL (Neg-Trace); Specific Gravity,Urine 1.017 (1.010-1.025); Urobilinogen,Urine Normal (Normal)
[2019-03-07 19:37] LABS: Bacteria,Urine Many per hpf (None-Few); Squamous Epithelial Cell,Urine Many per lpf (None-Few); WBC,Urine TNTC per hpf (0-3)
[2019-03-07] MEDS ORDERED: Isovue-370 500 ML BOTTLE IVP ONE (20:00)
[2019-03-07 21:03] LABS: Lipase 11 Units/L (11-82)
[2019-03-07] MEDS ORDERED: Piperacillin/Tazobactam 3.375 GM in 0.9 % Sodium Chloride Mini Bag 100 ML IVPB STA (21:05)
--- NOTE | 2019-03-07 21:45 | Emergency Department Note ---
Disposition Clinical Impression: Colitis UTI (urinary tract infection) Qualifiers: Urinary tract infection type: acute cystitis Hematuria presence: with hematuria Qualified Code(s): N30.01 - Acute cystitis with hematuria Abdominal pain Qualifiers: Abdominal location: left upper quadrant Qualified Code(s): R10.12 - Left upper quadrant pain Sepsis Qualifiers: Sepsis type: sepsis due to unspecified organism Sepsis acute organ dysfunction status: without acute organ dysfunction Qualified Code(s): A41.9 - Sepsis, unspecified organism Disposition: Admitted As Inpatient Condition: Good Time of Disposition: 21:15 General Adult HPI - General Chief complaint: ED Abdominal Pain Stated complaint: abd pain Time Seen by Provider: 03/07/19 18:36 Source: patient Limitations: no limitations Nursing Notes Reviewed: Yes Vital Signs Reviewed: Yes - History of Present Illness Pain Scale: 9 - Related Data Previous Rx's Medication Instructions Recorded levoFLOXacin [Levaquin] 750 mg PO DAILY #12 tablet 07/26/18 Naproxen [Naprosyn] 500 mg PO BID #12 tablet 11/13/18 Ondansetron ODT [Zofran ODT] 4 mg SL Q8HR #10 tab.rapdis 11/13/18 Allergies Allergy/AdvReac Type Severity Reaction Status Date / Time No Known Allergies Allergy Verified 03/07/19 18:20 Constitutional: Reports: fever, chills ENT ED: Denies: congestion Cardiovascular: Denies: chest pain, palpitations Respiratory: Denies: cough, dyspnea Gastrointestinal: Reports: abdominal pain, diarrhea. Denies: nausea, vomiting, hematemesis, melena, hematochezia Genitourinary: Reports: dysuria (Mild.). 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 - Social History Smoking Status: 2nd Hand Smoke Exposure Smokeless Tobacco Status: No Alcohol use: Reports: none Drug use: Reports: none Physical Exam - General Limitations: no limitations General appearance: alert, in no apparent distress Course Vital Signs Temperature 103.1 F H 03/07/19 18:20 Pulse Rate 154 03/07/19 18:20 Respiratory Rate 20 03/07/19 18:20 Blood Pressure 127/79 03/07/19 18:20 O2 Sat by Pulse Oximetry 97 03/07/19 18:20 Temperature 103.1 F H 03/07/19 18:42 Pulse Rate 124 03/07/19 19:51 Respiratory Rate 14 03/07/19 19:51 Blood Pressure 128/81 03/07/19 19:51 O2 Sat by Pulse Oximetry 100 03/07/19 19:51 Oxygen Delivery Oxygen Delivery Room Air Medical Decision Making - Medical Records Medical records reviewed: Yes I reviewed the patient's medical records. - Lab Data Lab results reviewed: Yes I reviewed the patient's lab results. Result diagrams: 03/07/19 18:39 03/07/19 18:39 Lab Results 03/07/19 03/07/19 03/07/19 Range/Units 18:27 18:27 18:39 WBC 13.7 H (4.3-11.1) K/mcL RBC 4.19 (3.82-4.97) M/mcL Hgb 12.6 (11.5-15.4) g/dL Hct 36.8 (35.3-44.9) % MCV 87.8 (83.0-100.0) fL MCH 30.1 (28.0-33.3) pg MCHC 34.2 (31.6-35.5) g/dL RDW 11.7 (11.5-14.5) % Plt Count 368 (140-400) K/mcL MPV 8.9 L (9.4-12.4) fL Immature Gran % 0.4 (0-4) % Seg Neutrophils % 84.3 % Lymphocytes % 9.9 % Monocytes % 3.3 % Eosinophils % 1.6 % Basophils % 0.5 % Neutrophils # 11.6 H (1.6-8.9) K/mcL Lymphocytes # 1.4 (0.6-4.6) K/mcL Monocytes # 0.5 (0.0-1.3) K/mcL Eosinophils # 0.2 (0.0-0.6) K/mcL Basophils # 0.1 (0.0-0.2) K/mcL Sodium (136-145) mEq/L Potassium (3.5-5.1) mEq/L Chloride (98-107) mEq/L Carbon Dioxide (23-29) mEq/L BUN (6-20) mg/dL Creatinine (0.60-1.20) mg/dL Est GFR ( Amer) (> 60) Est GFR (Non-Af Amer) (> 60) BUN/Creatinine Ratio (6-26) Glucose (70-105) mg/dL Calculated Osmolality (280-300) Lactic Acid (0.5-2.2) mmol/L Calcium (8.6-10.3) mg/dL Phosphorus (2.7-4.5) mg/dL Magnesium (1.6-2.6) mg/dL Total Bilirubin (0.3-1.0) mg/dL Direct Bilirubin (0.0-0.2) mg/dL Indirect Bilirubin (0.0-1.2) mg/dL AST (13-39) Units/L ALT (7-52) Units/L Alkaline Phosphatase (34-104) Units/L Troponin I (< 0.04) ng/mL Serum Total Protein (6.4-8.9) g/dL Albumin (3.5-5.7) g/dL Globulin (2.4-3.5) g/dL Albumin/Globulin Ratio (1.1-2.2) Lipase (11-82) Units/L Urine Color Yellow (Yellow) Urine Clarity Turbid A (Clear) Urine pH 6.0 (5.0-8.0) pH Units Ur Specific [place] 1.017 (1.010-1.025) Urine Protein 30 H (Neg-Trace) mg/dL Urine Glucose (UA) Normal (Normal) mg/dL Urine Ketones Negative (Negative) mg/dL Urine Blood Moderate H (Negative) Urine Nitrite Positive A (Negative) Urine Bilirubin Negative (Negative) Urine Urobilinogen Normal (Normal) mg/dL Ur Leukocyte Esterase Large H (Negative) Urine Microscopic RBC 5-15 H (0-3) per hpf Urine Microscopic WBC TNTC H (0-3) per hpf Ur Squamous Epith Cells Many H (None-Few) per lpf Urine Bacteria Many H (None-Few) per hpf Ur Culture Indicated? YES A (NO) Urine Test Negative (Negative) 03/07/19 03/07/19 Range/Units 18:39 18:39 WBC (4.3-11.1) K/mcL RBC (3.82-4.97) M/mcL Hgb (11.5-15.4) g/dL Hct (35.3-44.9) % MCV (83.0-100.0) fL MCH (28.0-33.3) pg MCHC (31.6-35.5) g/dL RDW (11.5-14.5) % Plt Count (140-400) K/mcL MPV (9.4-12.4) fL Immature Gran % (0-4) % Seg Neutrophils % % Lymphocytes % % Monocytes % % Eosinophils % % Basophils % % Neutrophils # (1.6-8.9) K/mcL Lymphocytes # (0.6-4.6) K/mcL Monocytes # (0.0-1.3) K/mcL Eosinophils # (0.0-0.6) K/mcL Basophils # (0.0-0.2) K/mcL Sodium 137 (136-145) mEq/L Potassium 3.6 (3.5-5.1) mEq/L Chloride 105 (98-107) mEq/L Carbon Dioxide 26 (23-29) mEq/L BUN 10 (6-20) mg/dL Creatinine 0.70 (0.60-1.20) mg/dL Est GFR ( Amer) > 60 (> 60) Est GFR (Non-Af Amer) > 60 (> 60) BUN/Creatinine Ratio 14 (6-26) Glucose 88 (70-105) mg/dL Calculated Osmolality 282 (280-300) Lactic Acid 1.1 (0.5-2.2) mmol/L Calcium 9.2 (8.6-10.3) mg/dL Phosphorus 2.9 (2.7-4.5) mg/dL Magnesium 1.8 (1.6-2.6) mg/dL Total Bilirubin 0.5 (0.3-1.0) mg/dL Direct Bilirubin 0.1 (0.0-0.2) mg/dL Indirect Bilirubin 0.4 (0.0-1.2) mg/dL AST 13 (13-39) Units/L ALT 7 (7-52) Units/L Alkaline Phosphatase 69 (34-104) Units/L Troponin I < 0.03 (< 0.04) ng/mL Serum Total Protein 6.9 (6.4-8.9) g/dL Albumin 4.2 (3.5-5.7) g/dL Globulin 2.7 (2.4-3.5) g/dL Albumin/Globulin Ratio 1.6 (1.1-2.2) Lipase 11 (11-82) Units/L Urine Color (Yellow) Urine Clarity (Clear) Urine pH (5.0-8.0) pH Units Ur Specific [place] (1.010-1.025) Urine Protein (Neg-Trace) mg/dL Urine Glucose (UA) (Normal) mg/dL Urine Ketones (Negative) mg/dL Urine Blood (Negative) Urine Nitrite (Negative) Urine Bilirubin (Negative) Urine Urobilinogen (Normal) mg/dL Ur Leukocyte Esterase (Negative) Urine Microscopic RBC (0-3) per hpf Urine Microscopic WBC (0-3) per hpf Ur Squamous Epith Cells (None-Few) per lpf Urine Bacteria (None-Few) per hpf Ur Culture Indicated? (NO) Urine Test (Negative) - Radiology Data Radiology results reviewed: Yes I reviewed the patient's radiology results. Chest X-Ray 03/07/19 20:13 IMPRESSION: Subtle streaky linear opacity in left lung base which may reflect atelectasis or pneumonia in the appropriate clinical setting.. No other acute cardiopulmonary findings. D/ / Susan Jay MD / Susan Jay MD Interpreting Provider: Susan Jay MD Abdomen/Pelvis CT 03/07/19 20:39 IMPRESSION: Mural thickening involving the descending sigmoid colon may relate to underdistention. Colitis could give a similar appearance. Please correlate exam findings and history. Bilateral renal calculi. No hydronephrosis. Trace free fluid dependent pelvis is likely physiologic. Please correlate exam findings and history. D/ / Jimbo Rodriguez / Jimbo Rodriguez Interpreting Provider: Jimbo Rodriguez - EKG Data EKG #1 EKG attestation: Yes I reviewed and interpreted this EKG. EKG results narrative: EKG showed sinus tachycardia with ventricular rate of 150. No significant ST segment elevation or depression. Critical Care Time Critical Care Time: Yes Total Critical Care Time: 40 Attestation: Critical care performed: Time is exclusive of separately billable procedures. Time includes: direct patient care, patient reassessment, coordination of patient care, interpretation of data (laboratory data, radiology data, and respiratory data), review of patient's medical records, medical consultation and documentation of patient care. Procedures included in critical care time: Procedures excluded from critical care time: Attestation Statement - Attestation Attestation: I, Lance Morgan MD, personally evaluated this patient and discussed their management with the resident physician. I reviewed the resident's note and agree with the documented findings, medical decision making, and plan of care. I reviewed the residents documentation and agree with the residents assessment and plan of care. I have personally had face to face time with the patient. I personally supervised and was present for the mccauley/critical portions of the following procedures completed by the resident: EKG interpretation. 28-year-old female presented to the emergency department with a complaint that she has been sick for about 1 week. Symptoms worse over the past 24 hours. She has developed a fever and abdominal pain. Some nausea and vomiting. She also has had moderate diarrhea. No melena, hematemesis, or hematochezia. On examination patient is a well-developed well-nourished female in no acute distress. She is alert and oriented 3. There is no cyanosis or diaphoresis. Breath sounds are clear and equal bilaterally. Heart regular with a moderate tachycardia. Abdomen is soft with present bowel sounds. There is moderate mid lower abdominal tenderness and left lower quadrant tenderness. EKG showed sinus tachycardia with ventricular rate of 150. No significant ST segment elevation or depression. Imaging reviewed. Labs reviewed. Blood cultures obtained and IV antibiotics initiated. The hospitalist, Dr. Payan, was consulted and accepted admission of the patient.
[2019-03-07] MEDS ORDERED: Naloxone 0.4 MG/ML INJ IVP PRN (23:59)
--- NOTE | 2019-03-08 00:19 | Internal Med History&Physical ---
Date of Encounter: 03/07/19 Time of Encounter: 23:45 Internal Medicine - H&P: HPI Chief complaint: Sepsis Admitted From: Emergency Dept Plans for Post Hospital Care: Home History of present illness: Ms. Simms is a 28 year old female Patient presented to the emergency department with abdominal pain and fever. She has not been feeling well for approximately 1 week. She describes lower abdominal pain, worse on the right. She has been vomiting as well for the last 24 hours. She has also been having diarrhea as well for the past week. She has never had symptoms like this before, but does state that she has had urinary tract infections in the past. She came to the ER for further evaluation. Emergency department vital signs: Temperature 103.1, pulse 154, respiratory rate 20, blood pressure 127/79, O2 saturation 97% on room air CBC: white count 13.7, otherwise within normal limits BMP unremarkable Lactic acid 1.1 Troponin less than 0.03 Lipase 11 Urinalysis: 30 protein, moderate blood, positive nitrite, large leukocyte esterase, too numerous to count white blood cells, many urine bacteria Urine test negative Chest x-ray showed IMPRESSION: Subtle streaky linear opacity in left lung base which may reflect atelectasis or pneumonia in the appropriate clinical setting.. No other acute cardiopulmonary findings. Abdomen pelvis CT IMPRESSION: Mural thickening involving the descending sigmoid colon may relate to underdistention. Colitis could give a similar appearance. Please correlate exam findings and history. Bilateral renal calculi. No hydronephrosis. Trace free fluid dependent pelvis is likely physiologic. Please correlate exam findings and history. Showed sinus tachycardia, rate 150, QTC 508 ms. No ischemic changes In the emergency department blood and urine cultures were obtained, she was given 1 L of IV fluids. She was started on ceftriaxone and Zosyn, and given acetaminophen for fever. She was admitted to the hospital for further management. Upon my evaluation, patient is resting in the hospital bed in mild distress. She states that she has some abdominal pain that has continued since her arrival, 8 out of 10. She denies chest pain and has not had vomiting since her arrival. Her abdominal pain is lower mainly and on the right side. She has been having loose stools for the last week but none since her arrival. She denies smoking, alcohol and other drugs. She denies significant medical history. She denies significant family medical history. She is a full code. Past Med Surg Social Fam HX - Past Medical History Medical history: migraine Additional medical history: eye inflamation Psychiatric history: anxiety - Past Surgical History Surgical History: other Additional surgical history: Elbow fractures fixation, tubal ligation - Social History Smoking Status: 2nd Hand Smoke Exposure Smokeless Tobacco Status: No Alcohol use: none Drug use: none - Family History Father Adopted: No Living Status: Still Living Hx Family Cardiac Disorders: Yes (HTN) Hx Family Respiratory Disorders: No Hx Family Cancer: No Hx Family GI Disorders: No Hx Family Endocrine Disorder: No Hx Family Neuromuscular Disorders: No Hx Family Neurologic Disorders: No Hx Family HEENT Disorders: No Hx Family Autoimmune Disorders: No Mother Living Status: Still Living Hx Family Cardiac Disorders: Yes (HTN) Internal Medicine - H&P: Meds No Known Home Drugs 03/07/19 [History] Allergy/AdvReac Type Severity Reaction Status Date / Time No Known Allergies Allergy Verified 03/07/19 18:20 All Systems PM: A 10-system review of systems was performed and is negative for pertinent findings except as documented above in the HPI. - Constitutional Vitals: Temp Pulse Resp BP Pulse Ox 98.8 F 111 17 107/64 97 03/07/19 22:25 03/07/19 22:25 03/07/19 22:25 03/07/19 22:25 03/07/19 22:25 General appearance: Present: cooperative, A&O X 3, pleasant, no acute distress, answers questions appropriately Exam: - - Head Head exam: Present: normal inspection - Eye Eye exam: Present: EOMI, normal appearance - Respiratory Respiratory exam: Present: CTAB. Absent: rales, respiratory distress, rhonchi, wheezes - Cardiovascular Cardiovascular exam: Present: RRR. Absent: diastolic murmur, systolic murmur - GI/Abdominal GI/Abdominal exam: Present: normal bowel sounds, soft. Absent: tenderness - Extremities Exam Extremities exam: Present: tenderness, warm, radial pulses palpable and symmetr ical. Absent: pedal edema - Back Exam Back exam: Present: CVA tenderness (R). Absent: CVA tenderness (L), vertebral tenderness - Neurological Exam Neurological exam: Present: no focal deficits, strengths equal and symetr throughout. Absent: motor sensory deficit, facial droop, speech deficit - Skin Skin exam: Present: dry, normal color, warm Internal Med - H&P Results - Labs CBC & Chem 7: 03/07/19 18:39 03/07/19 18:39 Labs: Short CBC 03/07/19 Range/Units 18:39 WBC 13.7 H (4.3-11.1) K/mcL Hgb 12.6 (11.5-15.4) g/dL Hct 36.8 (35.3-44.9) % Plt Count 368 (140-400) K/mcL Neutrophils # 11.6 H (1.6-8.9) K/mcL BMP 03/07/19 18:39 Sodium 137 Potassium 3.6 Chloride 105 Carbon Dioxide 26 BUN 10 Creatinine 0.70 Glucose 88 Calcium 9.2 Cardiac Enzymes 03/07/19 Range/Units 18:39 Troponin I < 0.03 (< 0.04) ng/mL Liver Function 03/07/19 Range/Units 18:39 Total Bilirubin 0.5 (0.3-1.0) mg/dL Direct Bilirubin 0.1 (0.0-0.2) mg/dL AST 13 (13-39) Units/L ALT 7 (7-52) Units/L Alkaline Phosphatase 69 (34-104) Units/L Albumin 4.2 (3.5-5.7) g/dL Urine 03/07/19 Range/Units 18:27 Urine Color Yellow (Yellow) Urine Clarity Turbid A (Clear) Urine pH 6.0 (5.0-8.0) pH Units Ur Specific [place] 1.017 (1.010-1.025) Urine Protein 30 H (Neg-Trace) mg/dL Urine Glucose (UA) Normal (Normal) mg/dL - Impressions ITS Impressions Chest X-Ray 03/07/19 20:13 IMPRESSION: Subtle streaky linear opacity in left lung base which may reflect atelectasis or pneumonia in the appropriate clinical setting.. No other acute cardiopulmonary findings. D/ / Susan Jay MD / Susan Jay MD Interpreting Provider: Susan Jay MD Abdomen/Pelvis CT 03/07/19 20:39 IMPRESSION: Mural thickening involving the descending sigmoid colon may relate to underdistention. Colitis could give a similar appearance. Please correlate exam findings and history. Bilateral renal calculi. No hydronephrosis. Trace free fluid dependent pelvis is likely physiologic. Please correlate exam findings and history. D/ / Jimbo Rodriguez / Jimbo Rodriguez Interpreting Provider: Jimbo Rodriguez - Assessment and Plan (1) Sepsis Current Visit: Yes Status: Acute Assessment and plan: Patient met sepsis criteria with elevated temperature, respiratory rate and heart rate. She has a urinary tract infection and possibly colitis. She was given IV fluids in the emergency department. Patient's lactic acid was not elevated however. Management as below Qualifiers: Sepsis type: sepsis due to unspecified organism Sepsis acute organ dysfunction status: without acute organ dysfunction Qualified Code(s): A41.9 - Sepsis, unspecified organism (2) Colitis Current Visit: Yes Status: Acute Assessment and plan: Patient's CT of her abdomen demonstrated mural thickening involving the descending sigmoid colon, colitis is a possibility. She was given ceftriaxone and Zosyn in the emergency department. We will modify the IV regimen to ceftriaxone primarily for her urinary tract infection and Flagyl for her col itis. Start Flagyl Follow-up blood cultures Pain management as needed Nothing by mouth until able to tolerate diet (3) UTI (urinary tract infection) Current Visit: Yes Status: Acute Assessment and plan: Patient has had urinary tract infections in the past, most recently in July of this year. The cultures grew out Escherichia coli which was pansensitive. She was started on ceftriaxone in the emergency department. Continue ceftriaxone Follow-up urine cultures when available Qualifiers: Urinary tract infection type: acute cystitis Hematuria presence: with hematuria Qualified Code(s): N30.01 - Acute cystitis with hematuria (4) Abdominal pain Current Visit: Yes Status: Acute Assessment and plan: Abdominal pain worse on the right with palpation. CT of the abdomen demonstrated colitis. She was given IV antibiotics in the ER. Management as above Qualifiers: Abdominal location: right lower quadrant Qualified Code(s): R10.31 - Right lower quadrant pain (5) DVT prophylaxis Current Visit: Yes Status: Acute Assessment and plan: SCDs - Time Spent With Patient Total time spent is greater than 50% in coordination of care (as documented) at patient's floor/unit and/or counseling patient:
[2019-03-08] MEDS ORDERED: Acetaminophen 325 MG TABLET PO PRN (00:31)
[2019-03-08] MEDS: MetroNIDAZOLE 500 MG/100 ML 500 MG/100 ML BAG IVPB SCH ×4 (00:56→23:52)
[2019-03-08] MEDS: *HR* OxyCODONE Immed Rel 5 MG TABLET PO PRN ×3 (04:03→20:04)
[2019-03-08] MEDS ORDERED: Ondansetron 4 MG/2 ML VIAL IVP PRN (04:23)
[2019-03-08 05:51] LABS: Hematocrit 32.2 % (35.3-44.9); Mean Corpuscular HGB Conc 32.6 g/dL (31.6-35.5); Mean Corpuscular Hemoglobin 29.9 pg (28.0-33.3); Mean Corpuscular Volume 91.7 fL (83.0-100.0); Red Blood Count 3.51 M/mcL (3.82-4.97); Red Cell Distribution Width 11.8 % (11.5-14.5); White Blood Count 10.7 K/mcL (4.3-11.1)
[2019-03-08 05:52] LABS: Hemoglobin 10.5 g/dL (11.5-15.4); Mean Platelet Volume 9.1 fL (9.4-12.4); Platelet Count 337 K/mcL (140-400)
[2019-03-08 06:19] LABS: BUN/Creatinine Ratio 13 (6-26); Blood Urea Nitrogen 8 mg/dL (6-20); Calcium 8.1 mg/dL (8.6-10.3); Carbon Dioxide 23 mEq/L (23-29); Chloride 105 mEq/L (98-107); Glucose 87 mg/dL (70-105); Osmolality,Calculated 290 (280-300); Potassium 3.5 mEq/L (3.5-5.1); Sodium 141 mEq/L (136-145); eGFR For African Americans > 60 (> 60); eGFR For Non-African Americans > 60 (> 60)
[2019-03-08] MEDS: cefTRIAXone 1,000 MG in Water for inj. (sterile) 10 ML IVP SCH (08:00)
[2019-03-08] MEDS: *HR* HYDROcodone/Acet 5/325 mg TABLET PO PRN (08:12)
--- NOTE | 2019-03-08 10:01 | Internal Med Progress Note ---
<Kaitlin Dale - Last Filed: 03/08/19 13:46> Hospitalist Progress Note - Encounter Date of Encounter: 03/08/19 - Exam Vitals: Temp Pulse Resp BP Pulse Ox 98.1 F 80 15 118/80 98 03/08/19 10:12 03/08/19 10:12 03/08/19 10:12 03/08/19 10:12 03/08/19 10:12 - Assessment and Plan (1) Sepsis Current Visit: Yes Status: Acute (2) Colitis Current Visit: Yes Status: Acute (3) UTI (urinary tract infection) Current Visit: Yes Status: Acute (4) Abdominal pain Current Visit: Yes Status: Acute (5) DVT prophylaxis Current Visit: Yes Status: Acute - Time Spent with Patient Total time spent is greater than 50% in coordination of care (as documented) at patient's floor/unit and/or counseling patient: Internal Medicine: Result - Labs CBC & Chem 7: 03/08/19 05:13 03/08/19 05:13 Labs: Short CBC 03/07/19 03/08/19 Range/Units 18:39 05:13 WBC 13.7 H 10.7 (4.3-11.1) K/mcL Hgb 12.6 10.5 L D (11.5-15.4) g/dL Hct 36.8 32.2 L (35.3-44.9) % Plt Count 368 337 (140-400) K/mcL Neutrophils # 11.6 H (1.6-8.9) K/mcL BMP 03/07/19 03/08/19 18:39 05:13 Sodium 137 141 Potassium 3.6 3.5 Chloride 105 105 Carbon Dioxide 26 23 BUN 10 8 Creatinine 0.70 0.62 Glucose 88 87 Calcium 9.2 8.1 L Cardiac Enzymes 03/07/19 Range/Units 18:39 Troponin I < 0.03 (< 0.04) ng/mL Liver Function 03/07/19 Range/Units 18:39 Total Bilirubin 0.5 (0.3-1.0) mg/dL Direct Bilirubin 0.1 (0.0-0.2) mg/dL AST 13 (13-39) Units/L ALT 7 (7-52) Units/L Alkaline Phosphatase 69 (34-104) Units/L Albumin 4.2 (3.5-5.7) g/dL Urine 03/07/19 Range/Units 18:27 Urine Color Yellow (Yellow) Urine Clarity Turbid A (Clear) Urine pH 6.0 (5.0-8.0) pH Units Ur Specific [place] 1.017 (1.010-1.025) Urine Protein 30 H (Neg-Trace) mg/dL Urine Glucose (UA) Normal (Normal) mg/dL - Impressions Impressions Chest X-Ray 03/07/19 20:13 IMPRESSION: Subtle streaky linear opacity in left lung base which may reflect atelectasis or pneumonia in the appropriate clinical setting.. No other acute cardiopulmonary findings. D/ / Susan Jay MD / Susan Jay MD Interpreting Provider: Susan Jay MD Abdomen/Pelvis CT 03/07/19 20:39 IMPRESSION: Mural thickening involving the descending sigmoid colon may relate to underdistention. Colitis could give a similar appearance. Please correlate exam findings and history. Bilateral renal calculi. No hydronephrosis. Trace free fluid dependent pelvis is likely physiologic. Please correlate exam findings and history. D/ / Jimbo Rodriguez / Jimbo Rodriguez Interpreting Provider: Jimbo Rodriguez Consult Discharge Plan - [facility] [place] [facility] - - Attending Attestation I examined this patient and my medical decision-making was reviewed with the Resident Physician Dr Shaver. I agree with the documented findings, disposition and treatment plan as described except to the extent set forth below. Ms Felipe is admitted with sepsis awake, tired but overall feeling a bit better, cont RLQ pain but improving. no n/v. hungry and would like to attempt diet. no diarrhea yet today. no fevers or chills. has hx of ovarian cysts with rupture in past. RLQ pain she is experiencing is far milder than pain when cyst ruptured in past. no vaginal discharge or bleeding. gen- alert, awake,appears stated age, non toxic appearing cv- reg rate and rhythm, normal s1,s2 lungs- ctabl abd- soft, tender RLQ and suprapubic, no rigidity, no rebound, + bs neuro- AAOx3 Sepsis, resolved 2/2 UTI and Possible Colitis- oral intake of fluids now, fu cxs UTI- cont Rocephin, fu cx Possible Sigmoid colitis on CT a/p, diarrhea ppears resolved- trial diet, stool cx, if not infectious or no return of diarrhea will have her fu with a PCP outpt to discuss outpt cscope, given pain is RLQ will watch for decline in clinical presentation (currently improved), appendix visualized on ct scan is unremarkable <Adan Shaver - Last Filed: 03/08/19 16:23> Hospitalist Progress Note - Encounter Date of Encounter: 03/08/19 Time of Encounter: 10:01 - Subjective Interval History: Miss felipe is a 28-year-old female admitted to her service for treatment of UTI and possible colitis She reports 1 week of feeling ill and having diarrhea. She began to develop significant right sided abdominal pain, associated with fever, vomiting and dysuria yesterday. On presentation to the ED she was found to have a heart rate of 154 and a temperature of 103.1, meeting criteria for sepsis, and was admitted. She reports ongoing right-sided pain, though notes it mostly in her flank. Patient has history of ovarian cyst rupture in the past, reports that pain was much more severe and different quality. She reports nausea, diarrhea, as well as a mild headache which she attributes to not having her usual caffeine intake She denies vomiting, black or bloody stool, dizziness, lightheadedness, chest pain, shortness of breath, black stool, bloody stool, hematemesis, hematochezia, melena, numbness/tingling/weakness anywhere. Patient is status post tubal ligation Past medical history significant for calcium deficiency and anxiety - Exam Vitals: Temp Pulse Resp BP Pulse Ox 97.7 F 84 16 109/62 98 03/08/19 06:31 03/08/19 06:31 03/08/19 06:31 03/08/19 06:31 03/08/19 06:31 Exam: Gen: Sleeping when I entered, appears ill, well-nourished, well kempt Head: Normocephalic, atraumatic Eyes: EOMI, no scleral icterus ENT: Mucous membranes moist CV: S1-S2 present, regular at a rate of approximately 85, no murmurs rubs or gallops Pulm: CTAB, not tachypneic, no respiratory distress, no increased work of b reathing Abd: Soft, tender to palpation RLQ, thin, nondistended, no rebound, some guarding. EXT: Grossly intact motor strength in all 4 extremities, no lower extremity alfreda a, no distal cyanosis or pallor Back: CVA tenderness to light percussion on R, none on L Skin: Warm, dry, intact, no rashes or lesions noted Neuro: Cranial nerves II-XII grossly intact, no focal neurologic deficits Psych: somnolent, normal mood and affect, Answers questions with intact judgment, appropriate insight, and linear thought - Assessment and Plan (1) Sepsis Current Visit: Yes Status: Resolved Assessment and Plan: Temperature on presentation is 103.1. Temperature today is 97.7 Heart rate on presentation was 154. Heart rate today is 84 Blood pressure WNL Lactic acid 1.1 No altered mental status * Continue to monitor hemodynamic status * Continue vital sign checks * Source control with Flagyl and Zosyn (2) UTI (urinary tract infection) Current Visit: Yes Status: Acute Assessment and Plan: Urinalysis revealed fulminant urinary tract infection CVA tenderness on right * Patient was treated with Rocephin and Zosyn in the ED, changed the Rocephin to Flagyl for better urinary coverage * Oral rehydration as tolerated * Monitor kidney function with BMPs every morning (3) Colitis Current Visit: Yes Status: Acute Assessment and Plan: Patient reports diarrhea [address] findings suggestive of colitis Patient is appropriate age for possible first presentation of inflammatory bowel diseases Serum alkaline phosphatase is normal * Stool panels to rule out infectious sources * Check fecal calprotectin and lactoferrin (4) Abdominal pain Current Visit: Yes Status: Acute Assessment and Plan: Patient with history of ruptured ovarian cyst, CT scan showed trace dependent fluid in the pelvis, however presentation is different from prior episode CT abdomen and pelvis visualized appendix, stated appeared normal No mention of abnormalities of the gallbladder and biliary system on CT report Status post tubal ligation Patient denies any travel to [facility], exposure to unfiltered fresh water sources * Workup and treatment for UTI and colitis as above DVT Prophylaxis: scd - Summary of Assessment and Plan Summary of Assessment and Plan: * Antibiotics for UTI and colitis * Stool panels to rule out/identify source - Time Spent with Patient Total time spent is greater than 50% in coordination of care (as documented) at patient's floor/unit and/or counseling patient: Plan of Care Discussed with: patient Internal Medicine: Result - Labs CBC & Chem 7: 03/08/19 05:13 03/08/19 05:13 Labs: Short CBC 03/07/19 03/08/19 Range/Units 18:39 05:13 WBC 13.7 H 10.7 (4.3-11.1) K/mcL Hgb 12.6 10.5 L D (11.5-15.4) g/dL Hct 36.8 32.2 L (35.3-44.9) % Plt Count 368 337 (140-400) K/mcL Neutrophils # 11.6 H (1.6-8.9) K/mcL BMP 03/07/19 03/08/19 18:39 05:13 Sodium 137 141 Potassium 3.6 3.5 Chloride 105 105 Carbon Dioxide 26 23 BUN 10 8 Creatinine 0.70 0.62 Glucose 88 87 Calcium 9.2 8.1 L Cardiac Enzymes 03/07/19 Range/Units 18:39 Troponin I < 0.03 (< 0.04) ng/mL Liver Function 03/07/19 Range/Units 18:39 Total Bilirubin 0.5 (0.3-1.0) mg/dL Direct Bilirubin 0.1 (0.0-0.2) mg/dL AST 13 (13-39) Units/L ALT 7 (7-52) Units/L Alkaline Phosphatase 69 (34-104) Units/L Albumin 4.2 (3.5-5.7) g/dL Urine 03/07/19 Range/Units 18:27 Urine Color Yellow (Yellow) Urine Clarity Turbid A (Clear) Urine pH 6.0 (5.0-8.0) pH Units Ur Specific [place] 1.017 (1.010-1.025) Urine Protein 30 H (Neg-Trace) mg/dL Urine Glucose (UA) Normal (Normal) mg/dL - Impressions Impressions Chest X-Ray 03/07/19 20:13 IMPRESSION: Subtle streaky linear opacity in left lung base which may reflect atelectasis or pneumonia in the appropriate clinical setting.. No other acute cardiopulmonary findings. D/ / Susan Jay MD / Susan Jay MD Interpreting Provider: Susan Jay MD Abdomen/Pelvis CT 03/07/19 20:39 IMPRESSION: Mural thickening involving the descending sigmoid colon may relate to underdistention. Colitis could give a similar appearance. Please correlate exam findings and history. Bilateral renal calculi. No hydronephrosis. Trace free fluid dependent pelvis is likely physiologic. Please correlate exam findings and history. D/ / Jimbo Rodriguez / Jimbo Rodriguez Interpreting Provider: Jimbo Rodriguez <Kaitlin Dale - Last Filed: 03/08/19 13:46> (1) Sepsis Qualifiers: Sepsis type: sepsis due to unspecified organism Sepsis acute organ dysfunction status: without acute organ dysfunction Qualified Code(s): A41.9 - Sepsis, unspecified organism (3) UTI (urinary tract infection) Qualifiers: Urinary tract infection type: acute cystitis Hematuria presence: with hematuria Qualified Code(s): N30.01 - Acute cystitis with hematuria (4) Abdominal pain Qualifiers: Abdominal location: right lower quadrant Qualified Code(s): R10.31 - Right lower quadrant pain <Adan Shaver S - Last Filed: 03/08/19 16:23> (1) Sepsis Qualifiers: Sepsis type: sepsis due to unspecified organism Sepsis acute organ dysfunction status: without acute organ dysfunction Qualified Code(s): A41.9 - Sepsis, unspecified organism (2) UTI (urinary tract infection) Qualifiers: Urinary tract infection type: acute cystitis Hematuria presence: with hematuria Qualified Code(s): N30.01 - Acute cystitis with hematuria (4) Abdominal pain Qualifiers: Abdominal location: right lower quadrant Qualified Code(s): R10.31 - Right lower quadrant pain
[2019-03-08] MEDS: Ondansetron 4 MG/2 ML VIAL IVP PRN ×2 (11:39→16:26)
[2019-03-08] MEDS ORDERED: Prochlorperazine 10 MG/2 ML VIAL IVP PRN ×2 (16:31→16:37)
[2019-03-09] MEDS: Ondansetron 4 MG/2 ML VIAL IVP PRN (01:57)
[2019-03-09] MEDS: *HR* HYDROcodone/Acet 5/325 mg TABLET PO PRN ×2 (03:23→19:05)
[2019-03-09 04:33] LABS: Basophils % 0.3 %; Eosinophils % 0.3 %; Hematocrit 35.6 % (35.3-44.9); Hemoglobin 11.7 g/dL (11.5-15.4); Immature Granulocytes % 0.4 % (0-4); Lymphocytes # 1.5 K/mcL (0.6-4.6); Lymphocytes % 10.4 %; Mean Corpuscular HGB Conc 32.9 g/dL (31.6-35.5); Mean Corpuscular Hemoglobin 29.5 pg (28.0-33.3); Mean Corpuscular Volume 89.7 fL (83.0-100.0); Mean Platelet Volume 9.2 fL (9.4-12.4); Monocytes # 0.8 K/mcL (0.0-1.3); Monocytes % 5.2 %; Neutrophils # 12.1 K/mcL (1.6-8.9); Platelet Count 416 K/mcL (140-400); Red Blood Count 3.97 M/mcL (3.82-4.97); Red Cell Distribution Width 11.3 % (11.5-14.5); Segmented Neutrophils % 83.4 %; White Blood Count 14.5 K/mcL (4.3-11.1)
[2019-03-09 04:50] LABS: BUN/Creatinine Ratio 17 (6-26); Blood Urea Nitrogen 9 mg/dL (6-20); Calcium 8.8 mg/dL (8.6-10.3); Carbon Dioxide 16 mEq/L (23-29); Chloride 102 mEq/L (98-107); Glucose 64 mg/dL (70-105); Osmolality,Calculated 275 (280-300); Potassium 3.7 mEq/L (3.5-5.1); Sodium 134 mEq/L (136-145); eGFR For African Americans > 60 (> 60); eGFR For Non-African Americans > 60 (> 60)
--- NOTE | 2019-03-09 06:40 | Electrocardiograph Report ---
[place] [facility] Test Date: 2019-03-07 Pat Name: Savannah Simms Department: [id number] Room: 3A46 Gender: F [employer]: : [id number] Requested By: Deanna Ng Order Number: [id number] Reading MD: Dave Ruiz Measurements Intervals [place] Rate: 150 P: 91 IN: 86 QRS: 19 QRSD: 76 T: -84 QT: 321 QTc: 508 Interpretive Statements Sinus tachycardia Electronically Signed On 03-09-2019 6:38:46 EDT by Dave Ruiz
[2019-03-09] MEDS: MetroNIDAZOLE 500 MG/100 ML 500 MG/100 ML BAG IVPB SCH ×2 (08:01→16:52)
[2019-03-09] MEDS: cefTRIAXone 1,000 MG in Water for inj. (sterile) 10 ML IVP SCH (08:01)
[2019-03-09] MEDS: *HR* OxyCODONE Immed Rel 5 MG TABLET PO PRN (08:12)
--- NOTE | 2019-03-09 08:59 | Internal Med Progress Note ---
<ChitoKaitlin Abimael - Last Filed: 03/09/19 13:35> Hospitalist Progress Note - Encounter Date of Encounter: 03/09/19 - Exam Vitals: Temp Pulse Resp BP Pulse Ox 98.0 F 85 16 126/80 99 03/09/19 10:13 03/09/19 10:13 03/09/19 10:13 03/09/19 10:13 03/09/19 10:13 - Assessment and Plan (1) Sepsis Current Visit: Yes Status: Resolved (2) Colitis Current Visit: Yes Status: Acute (3) UTI (urinary tract infection) Current Visit: Yes Status: Acute (4) Abdominal pain Current Visit: Yes Status: Acute (5) DVT prophylaxis Current Visit: Yes Status: Acute - Time Spent with Patient Total time spent is greater than 50% in coordination of care (as documented) at patient's floor/unit and/or counseling patient: Internal Medicine: Result - Labs CBC & Chem 7: 03/09/19 03:41 03/09/19 03:41 Labs: Short CBC 03/09/19 Range/Units 03:41 WBC 14.5 H (4.3-11.1) K/mcL Hgb 11.7 (11.5-15.4) g/dL Hct 35.6 (35.3-44.9) % Plt Count 416 H (140-400) K/mcL Neutrophils # 12.1 H (1.6-8.9) K/mcL BMP 03/09/19 03:41 Sodium 134 L Potassium 3.7 Chloride 102 Carbon Dioxide 16 L BUN 9 Creatinine 0.54 L Glucose 64 L Calcium 8.8 Consult Discharge Plan - Plan Referrals: [facility] – [place],Steve Mims MD [Primary Care Provider] - - Attending Attestation I examined this patient and my medical decision-making was reviewed with the Resident Physician Dr Shaver. I agree with the documented findings, disposition and treatment plan as described except to the extent set forth below. Ms Simms is admitted with sepsis awake, starting to have improved abd pain, no dysuria but + bladder pressure with urination. denies fevers or chills. + n/v yesterday.Able to keep a few bites of breakfast down thus far this morning and will try to eat more with lunch. She has had no bms here. gen- alert, awake,appears stated age cv- reg rate and rhythm, normal s1,s2 lungs- ctabl abd- soft, non tender no rigidity, no rebound, + bs neuro- AAOx3 Sepsis, resolved 2/2 UTI and Possible Colitis- oral intake of fluids now, fu cxs, cont to monitor wbc elevation and for fevers UTI- cont Rocephin inpt, cxs reviewed, transition to oral on dc Possible Sigmoid colitis on CT a/p, diarrhea appears resolved- can cancel stool cx, outpt fu to eval for IBD or need for cscope if sxs return, cont to try to advance diet, rocephin + flagyl, monitor to see if flagyl is contributing to nausea/vomiting further dx and plan as noted by resident <Adan Shaver S - Last Filed: 03/09/19 21:22> Hospitalist Progress Note - Encounter Date of Encounter: 03/09/19 Time of Encounter: 08:59 - Subjective Interval History: This cousins is a 28-year-old female who is admitted to her service with sepsis, UTI. Today she is feeling much better. States she is no longer nauseous, not vomiting. Feels more energetic. She is visibly more comfortable. She reports no further diarrhea, which she attributes to not having eaten anything ye sterday. She reports her appetite has returned, and she was able to eat a small amount of eggs for breakfast She denies chest pain, shortness of breath, cough, headache, blurry vision, double vision, trouble swallowing or speaking, numbness/tingling/weakness anywhere - Exam Vitals: Temp Pulse Resp BP Pulse Ox 98.3 F 93 16 117/80 100 03/09/19 06:53 03/09/19 06:53 03/09/19 06:53 03/09/19 06:53 03/09/19 06:53 Exam: Gen: Sleeping when I entered, appears much more comfortable than yesterday, well-nourished, well kempt Head: Normocephalic, atraumatic Eyes: EOMI, no scleral icterus ENT: Mucous membranes moist CV: S1-S2 present, regular at a rate of approximately 85, no murmurs rubs or gallops Pulm: CTAB, not tachypneic, no respiratory distress, no increased work of breathing Abd: Soft, mild tenderness to palpation much improved since yesterday, thin, nondistended, no rebound or guarding. EXT: Grossly intact motor strength in all 4 extremities, no lower extremity edema, no distal cyanosis or pallor Skin: Warm, dry, intact, no rashes or lesions noted Neuro: Cranial nerves II-XII grossly intact, no focal neurologic deficits Psych: somnolent, normal mood and affect, Answers questions with intact judgment, appropriate insight, and linear thought - Assessment and Plan (1) Sepsis Current Visit: Yes Status: Resolved Assessment and Plan: Resolved (2) UTI (urinary tract infection) Current Visit: Yes Status: Acute Assessment and Plan: Symptoms improving Sensitivities of cultures resulted in pansensitive Escherichia coli * Continue Rocephin and Flagyl IV * Possible transition to oral antibiotics and discharge to home tomorrow (3) Colitis Current Visit: Yes Status: Acute Assessment and Plan: Patient without diarrhea 2 days * Continue antibiotic treatment for UTI * Stool panel canceled * IBD studies, if collected, to be followed outpatient with PCP (4) Abdominal pain Current Visit: Yes Status: Acute Assessment and Plan: Abdominal pain resolving * De-escalate pain management strategy, [place] 5/325 for severe pain, Tylenol 650 for mild to moderate pain DVT Prophylaxis: scd - Time Spent with Patient Total time spent is greater than 50% in coordination of care (as documented) at patient's floor/unit and/or counseling patient: Internal Medicine: Result - Labs CBC & Chem 7: 03/09/19 03:41 03/09/19 03:41 Labs: Short CBC 03/09/19 Range/Units 03:41 WBC 14.5 H (4.3-11.1) K/mcL Hgb 11.7 (11.5-15.4) g/dL Hct 35.6 (35.3-44.9) % Plt Count 416 H (140-400) K/mcL Neutrophils # 12.1 H (1.6-8.9) K/mcL BMP 03/09/19 03:41 Sodium 134 L Potassium 3.7 Chloride 102 Carbon Dioxide 16 L BUN 9 Creatinine 0.54 L Glucose 64 L Calcium 8.8 <Kaitlin Dale M - Last Filed: 03/09/19 13:35> (1) Sepsis Qualifiers: Sepsis type: sepsis due to unspecified organism Sepsis acute organ dysfunction status: without acute organ dysfunction Qualified Code(s): A41.9 - Sepsis, unspecified organism (3) UTI (urinary tract infection) Qualifiers: Urinary tract infection type: acute cystitis Hematuria presence: with hematuria Qualified Code(s): N30.01 - Acute cystitis with hematuria (4) Abdominal pain Qualifiers: Abdominal location: right lower quadrant Qualified Code(s): R10.31 - Right lower quadrant pain <Adan Shaver S - Last Filed: 03/09/19 21:22> (1) Sepsis Qualifiers: Sepsis type: sepsis due to unspecified organism Sepsis acute organ dysfunction status: without acute organ dysfunction Qualified Code(s): A41.9 - Sepsis, unspecified organism (2) UTI (urinary tract infection) Qualifiers: Urinary tract infection type: acute cystitis Hematuria presence: with hematuria Qualified Code(s): N30.01 - Acute cystitis with hematuria (4) Abdominal pain Qualifiers: Abdominal location: right lower quadrant Qualified Code(s): R10.31 - Right lower quadrant pain
[2019-03-09] MEDS ORDERED: Acetaminophen 325 MG TABLET PO PRN ×2 (13:04→15:42)
[2019-03-09] MEDS ORDERED: *HR* HYDROcodone/Acet 5/325 mg TABLET PO PRN (15:43)
[2019-03-10] MEDS: MetroNIDAZOLE 500 MG/100 ML 500 MG/100 ML BAG IVPB SCH (00:02)
[2019-03-10] MEDS: *HR* HYDROcodone/Acet 5/325 mg TABLET PO PRN ×2 (02:14→09:53)
[2019-03-10] MEDS: Ondansetron 4 MG/2 ML VIAL IVP PRN ×2 (02:14→11:30)
[2019-03-10 05:25] LABS: Basophils # 0.1 K/mcL (0.0-0.2); Basophils % 0.5 %; Eosinophils # 0.2 K/mcL (0.0-0.6); Eosinophils % 1.7 %; Hemoglobin 11.5 g/dL (11.5-15.4); Immature Granulocytes % 0.6 % (0-4); Lymphocytes # 2.2 K/mcL (0.6-4.6); Lymphocytes % 18.8 %; Mean Corpuscular HGB Conc 33.8 g/dL (31.6-35.5); Mean Corpuscular Volume 88.8 fL (83.0-100.0); Mean Platelet Volume 8.8 fL (9.4-12.4); Monocytes # 1.2 K/mcL (0.0-1.3); Monocytes % 10.2 %; Neutrophils # 7.8 K/mcL (1.6-8.9); Platelet Count 372 K/mcL (140-400); Red Blood Count 3.83 M/mcL (3.82-4.97); Red Cell Distribution Width 11.5 % (11.5-14.5); Segmented Neutrophils % 68.2 %; White Blood Count 11.4 K/mcL (4.3-11.1)
[2019-03-10 05:47] LABS: BUN/Creatinine Ratio 14 (6-26); Blood Urea Nitrogen 8 mg/dL (6-20); Calcium 8.6 mg/dL (8.6-10.3); Carbon Dioxide 22 mEq/L (23-29); Chloride 107 mEq/L (98-107); Glucose 76 mg/dL (70-105); Osmolality,Calculated 277 (280-300); Potassium 3.4 mEq/L (3.5-5.1); Sodium 135 mEq/L (136-145); eGFR For African Americans > 60 (> 60); eGFR For Non-African Americans > 60 (> 60)
--- NOTE | 2019-03-10 08:17 | Discharge Summary ---
<Adan Shaver S - Last Filed: 03/10/19 11:21> - NOTES TO OUTPATIENT PROVIDER Notes to Outpatient Provider: Patient admitted for sepsis secondary to colitis and UTI. Responded well to antibiotics, discharged on oral Cipro/Flagyl, with oral Zofran. Fecal calprotectin and lactoferrin ordered, but no stools while inpatient. Consider workup for IBD. Discussed this with the patient. Orders not resulted at time of discharge: Pending orders 03/07/19 18:34 Culture,Blood [BC] Stat 03/08/19 16:20 Calprotectin, Fecal Routine Fecal Lactoferrin [RM] Routine Date of Encounter: 03/10/19 Time of Encounter: 09:15 - Discharge Diagnosis (1) Sepsis Priority: Primary Status: Resolved Assessment and Plan: Sepsis secondary to UTI and colitis Resolved with IV antibiotics Severe nausea and vomiting controlled with Zofran Vital signs all within normal limits at time of discharge IV antibiotics transitioned to oral Cipro and Flagyl for remainder of 10 day course * Continue by mouth antibiotics * Follow-up with PCP Qualifiers: Sepsis type: sepsis due to unspecified organism Sepsis acute organ dysfunction status: without acute organ dysfunction Qualified Code(s): A41.9 - Sepsis, unspecified organism (2) UTI (urinary tract infection) Priority: Primary Status: Acute Assessment and Plan: Patient has residual right-sided flank pain, rated 7 out of 10 Patient is afebrile with clear mentation and no dysuria * Discussed [id number] Motrin/Tylenol with patient for outpatient pain control * Oral Cipro/Flagyl to be continued for 7 more days * Sublingual Zofran will also be ordered Qualifiers: Urinary tract infection type: acute cystitis Hematuria presence: with hematuria Qualified Code(s): N30.01 - Acute cystitis with hematuria (3) Colitis Priority: Primary Status: Acute Assessment and Plan: Abdominal exam significantly improved from admission, tenderness and guarding are almost completely resolved. Patient has not had a bowel movement since admission to the floor. Patient is passing gas, reports good appetite, no distention * Continue to advance diet as tolerated * Antibiotics and Zofran as noted above * Motrin & Tylenol for pain control (4) Abdominal pain Priority: Secondary Status: Resolved Assessment and Plan: See assessment and plan for colitis Qualifiers: Abdominal location: right lower quadrant Qualified Code(s): R10.31 - Right lower quadrant pain Hospital course: Ms. Simms is a 28 year old female who was admitted to her service for sepsis. Testing found UTI and possible colitis as source. She had been having diarrhea, nausea, and vomiting, and had severe right-sided flank pain and CVA tenderness. She was started on antiemetics and antibiotics in the ED, later, her antibiotics were adjusted to more targeted options. Her diet was advanced as tolerated, and she was transitioned to oral antibiotics At time of discharge, her symptoms have nearly completely resolved, her lab abnormalities have been normalizing 2 days, and she states she is feeling up to going home, and wants to go home. - Time Spent with Patient Total time spent providing and/or coordinating discharge services: - Discharge Medications Prescriptions: New Ciprofloxacin [Cipro] 500 mg PO BID 7 Days #14 tablet metroNIDAZOLE [Flagyl] 500 mg PO TID 7 Days #21 tablet Acetaminophen [Tylenol] 650 mg PO Q6HR PRN 10 Days #80 tablet PRN Reason: Mild To Moderate Pain Ondansetron ODT [Zofran ODT] 4 mg SL Q6HR PRN 5 Days #20 tab.rapdis PRN Reason: Nausea And Vomiting Home Medications: Acetaminophen [Tylenol] 650 mg PO Q6HR PRN 10 Days #80 tablet 03/10/19 [Rx] Ciprofloxacin [Cipro] 500 mg PO BID 7 Days #14 tablet 03/10/19 [Rx] Ondansetron ODT [Zofran ODT] 4 mg SL Q6HR PRN 5 Days #20 tab.rapdis 03/10/19 [Rx] metroNIDAZOLE [Flagyl] 500 mg PO TID 7 Days #21 tablet 03/10/19 [Rx] Allergies/Adverse Reactions: Allergy/AdvReac Type Severity Reaction Status Date / Time No Known Allergies Allergy Verified 03/07/19 18:20 Date of admission: 03/08/19 13:55 Primary care physician: Steve Jimenez MD Discharging clinician: Adan Shaver Anticipated date of discharge: 03/10/19 - Constitutional Vitals: Temp Pulse Resp BP Pulse Ox 98.4 F 86 18 119/80 98 03/10/19 06:22 03/10/19 06:22 03/10/19 06:22 03/10/19 06:22 03/10/19 06:22 General appearance: Present: cooperative, A&O X 3, pleasant, no acute distress, answers questions appropriately Exam: Gen: Sleeping when I entered, appears much more comfortable than yesterday, well-nourished, well kempt Head: Normocephalic, atraumatic Eyes: EOMI, no scleral icterus ENT: Mucous membranes moist , poor dentition throughout CV: S1-S2 present, regular at a rate of approximately 85, no murmurs rubs or gallops Pulm: CTAB, not tachypneic, no respiratory distress, no increased work of breathing Abd: Soft, mild tenderness to palpation still present, thin, nondistended, no rebound or guarding. Some guarding in the right flank, significantly improved from presentation EXT: Grossly intact motor strength in all 4 extremities, no lower extremity edema, no distal cyanosis or pallor Skin: Warm, dry, intact, no rashes or lesions noted Neuro: Cranial nerves II-XII grossly intact, no focal neurologic deficits Psych: somnolent, normal mood and affect, Answers questions with intact judgment, appropriate insight, and linear thought - Patient Status Disposition: Home, Self-Care Condition: Good Functional capacity at discharge: independent ambulation Overall status at discharge: patient is progressing back to baseline - Discharge Instructions Instructions: Ciprofloxacin (By mouth), Acetaminophen (By mouth), Metronidazole (By mouth), Ondansetron (By mouth), Urinary Tract Infection in Women (DC), Sepsis (DC) Follow Up With: Steve dooley MD [Primary Care Provider] - Additional Instructions: You have been prescribed one week of ciprofloxacin and metronidazole. These are antibiotics, and may make you nauseous if they are not taken with meals. IT IS VERY IMPORTANT THAT YOU DO NOT DRINK ANY ALCOHOL WHILE TAKING METRONIDAZOLE, AND FOR AT LEAST 3 DAYS AFTER THE END OF YOUR ANTIBIOTIC TREATMENT As discussed in the hospital today, call your primary care physician's office in the morning to set up a follow-up appointment. - Diet and Activity Activity: increase activity as tolerated Diet: advance to your usual diet <Kaitlin Dale - Last Filed: 03/10/19 12:50> Orders not resulted at time of discharge: Pending orders 03/07/19 18:34 Culture,Blood [BC] Stat 03/08/19 16:20 Calprotectin, Fecal Routine Fecal Lactoferrin [RM] Routine Date of Encounter: 03/10/19 - Discharge Diagnosis (1) Colitis Status: Acute (2) UTI (urinary tract infection) Status: Acute Qualifiers: Urinary tract infection type: acute cystitis Hematuria presence: with hematuria Qualified Code(s): N30.01 - Acute cystitis with hematuria (3) DVT prophylaxis Status: Acute Hospital course: Ms. Simms is a 28 year old female - Time Spent with Patient Total time spent providing and/or coordinating discharge services: Date of admission: 03/08/19 13:55 Primary care physician: Steve Jimenez MD - Constitutional Vitals: Temp Pulse Resp BP Pulse Ox 97.5 F L 89 18 126/84 100 03/10/19 09:59 03/10/19 09:59 03/10/19 09:59 03/10/19 09:59 03/10/19 09:59 - Attending Attestation I examined this patient and my medical decision-making was reviewed with the Resident Physician Dr Shaver. I agree with the documented findings, disposition and treatment plan as described except to the extent set forth below. Ms Simms is admitted with sepsis. She is medically stable for dc to home today awake, feeling better, mild residual pain but eating and drinking without any issues. no further n/v. no fevers or chills. dc plan discussed and all questions answered gen- alert, awake,appears stated age cv- reg rate and rhythm, normal s1,s2 lungs- ctabl abd- soft, non tender no rigidity neuro- AAOx3 Sepsis, resolved 2/2 UTI and Possible Colitis UTI- transition to oral cipro on dc after review of cx Possible Sigmoid colitis on CT a/p, diarrhea resolved- outpt fu to eval for IBD or need for cscope if sxs return, cipro + flagyl on dc further dx and plan as noted by resident time spent on dc 40 min
[2019-03-10] MEDS ORDERED: metroNIDAZOLE 500 MG TABLET PO SCH (09:00)
[2019-03-10 10:01] VITALS: BP 126/84
== END 2019-03-10 12:25 | disposition home or self-care (01) | DRG 720 ==
LOC: EMEROOARM 18:17 → 3ANU 18:17 → SUATTDRO 21:37 → 3ANU 22:15
PROVIDERS: ADMIT Internal Medicine; ATTEND Internal Medicine

== ENCOUNTER 2021-04-27 03:11 | Inpatient (IN) ==
[2021-04-27] MEDS ORDERED: Ketorolac 15 MG/ML VIAL IVP ONE (03:20)
[2021-04-27 03:54] LABS: Basophils # 0.1 K/mcL (0.0-0.2); Basophils % 0.4 %; Eosinophils % 0.3 %; Hemoglobin 11.3 g/dL (11.5-15.4); Immature Granulocytes % 0.4 % (0-4); Lymphocytes # 1.5 K/mcL (0.6-4.6); Lymphocytes % 9.9 %; Mean Corpuscular HGB Conc 33.2 g/dL (31.6-35.5); Mean Corpuscular Hemoglobin 29.7 pg (28.0-33.3); Mean Corpuscular Volume 89.2 fL (83.0-100.0); Mean Platelet Volume 9.4 fL (9.4-12.4); Monocytes # 1.4 K/mcL (0.0-1.3); Monocytes % 9.5 %; Platelet Count 297 K/mcL (140-400); Red Blood Count 3.81 M/mcL (3.82-4.97); Red Cell Distribution Width 11.9 % (11.5-14.5); Segmented Neutrophils % 79.5 %; White Blood Count 15.1 K/mcL (4.3-11.1)
[2021-04-27 04:08] LABS: Alanine Aminotransferase 11 Units/L (7-52); Albumin 3.9 g/dL (3.5-5.7); Albumin/Globulin Ratio 1.3 (1.1-2.2); Alkaline Phosphatase 54 Units/L (34-104); Aspartate Amino Transferase 15 Units/L (13-39); BUN/Creatinine Ratio 10 (6-26); Bilirubin,Total 0.8 mg/dL (0.3-1.0); Blood Urea Nitrogen 8 mg/dL (6-20); Calcium 8.9 mg/dL (8.6-10.3); Carbon Dioxide 23 mEq/L (23-29); Chloride 103 mEq/L (98-107); Globulin 3.1 g/dL (2.4-3.5); Glucose 90 mg/dL (70-105); Osmolality,Calculated 278 (280-300); Sodium 135 mEq/L (136-145); eGFR For African Americans > 60 (> 60); eGFR For Non-African Americans > 60 (> 60)
[2021-04-27] MEDS ORDERED: Isovue-370 500 ML BOTTLE IVP ONE (04:30)
[2021-04-27] MEDS ORDERED: Naloxone 0.4 MG/ML INJ IVP PRN (05:43)
[2021-04-27] MEDS ORDERED: Potassium Chloride Elixir 20 MEQ/15 ML UDC PO ONE (06:00)
[2021-04-27 06:19] LABS: Bilirubin,Urine Negative (Negative); Blood,Urine Large (Negative); Clarity,Urine Clear (Clear); Color,Urine Light-Orange (Yellow); Glucose,Urine (UA) Normal (Normal); Ketones,Urine 60 mg/dL (Negative); Leukocyte Esterase,Urine Moderate (Negative); Mucus,Urine Few per lpf (None-Few); Nitrite,Urine Negative (Negative); PH,Urine 6.5 pH Units (5.0-8.0); Protein,Urine 70 mg/dL (Neg-Trace); RBC,Urine TNTC per hpf (0-3); Specific Gravity,Urine > 1.030 (1.010-1.025); Squamous Epithelial Cell,Urine Moderate per hpf (None-Few); WBC,Urine 50-100 per hpf (0-3)
[2021-04-27] MEDS: 0.9 % Sodium Chloride 1,000 ML IVC SCH ×2 (07:50→14:59)
[2021-04-27] MEDS ORDERED: Topiramate 25 MG TABLET PO PRN (08:38)
[2021-04-27] MEDS ORDERED: cefTRIAXone 2,000 MG in 0.9 % Sodium Chloride Mini Bag 100 ML IVPB SCH (09:00)
[2021-04-27] MEDS: Topiramate 25 MG TABLET PO SCH (09:33)
[2021-04-27 10:43] LABS: Amphetamine Screen,Urine Negative ng/mL (Cutoff=1000); Barbiturate Screen,Urine Negative ng/mL (Cutoff=200); Benzodiazepines Screen,Urine Negative ng/mL (Cutoff=200); Cannabinoid Screen,Urine Positive ng/mL (Cutoff = 50); Cocaine Screen,Urine Negative ng/mL (Cutoff= 300); Opiate Screen,Urine Positive ng/mL (Cutoff=300); Phencyclidine Screen,Urine Negative ng/mL (Cutoff=25)
[2021-04-27] MEDS: Ondansetron 4 MG/2 ML VIAL IVP PRN (13:08)
[2021-04-27] MEDS: Acetaminophen 325 MG TABLET PO PRN (16:50)
[2021-04-28] MEDS: Ondansetron 4 MG/2 ML VIAL IVP PRN ×4 (00:21→20:00)
[2021-04-28] MEDS ORDERED: Isovue-370 500 ML BOTTLE IVP ONE (00:35)
[2021-04-28] MEDS: cefTRIAXone 2,000 MG in Water for inj. (sterile) 20 ML IVP SCH ×2 (01:09→13:36)
[2021-04-28] MEDS ORDERED: 0.9 % Sodium Chloride 250 ML ONE (01:19)
[2021-04-28 01:53] LABS: Hematocrit 28.5 % (35.3-44.9); Hemoglobin 9.8 g/dL (11.5-15.4); Mean Corpuscular HGB Conc 34.4 g/dL (31.6-35.5); Mean Corpuscular Hemoglobin 30.5 pg (28.0-33.3); Mean Corpuscular Volume 88.8 fL (83.0-100.0); Mean Platelet Volume 9.3 fL (9.4-12.4); Platelet Count 273 K/mcL (140-400); Red Blood Count 3.21 M/mcL (3.82-4.97); Red Cell Distribution Width 11.6 % (11.5-14.5)
[2021-04-28 02:07] LABS: BUN/Creatinine Ratio 12 (6-26); Blood Urea Nitrogen 7 mg/dL (6-20); Calcium 7.8 mg/dL (8.6-10.3); Carbon Dioxide 21 mEq/L (23-29); Chloride 107 mEq/L (98-107); Glucose 122 mg/dL (70-105); Osmolality,Calculated 281 (280-300); Potassium 2.8 mEq/L (3.5-5.1); Sodium 136 mEq/L (136-145); eGFR For African Americans > 60 (> 60); eGFR For Non-African Americans > 60 (> 60)
[2021-04-28] MEDS: Ketorolac 30 MG/ML VIAL IVP PRN ×2 (05:20→13:35)
[2021-04-28] MEDS: Acyclovir 500 MG in D5% in Water 100 ML IVPB SCH ×2 (07:36→16:30)
[2021-04-28] MEDS: Topiramate 25 MG TABLET PO SCH (08:41)
[2021-04-28 15:33] LABS: Glucose,CSF 62 mg/dL (40-70); Total Protein,CSF 21 mg/dL (15-45)
[2021-04-28 15:35] LABS: Red Blood Cell,CSF 3000 RBC/mcL
[2021-04-28 15:37] LABS: Red Blood Cell,CSF < 2000 RBC/mcL
[2021-04-28 15:39] LABS: Appearance,CSF Clear (Clear)
[2021-04-28 16:29] LABS: Appearance,CSF Hazy (Clear)
[2021-04-28] MEDS: Acetaminophen 325 MG TABLET PO PRN (19:56)
[2021-04-29 01:56] LABS: Hematocrit 31.2 % (35.3-44.9); Hemoglobin 10.6 g/dL (11.5-15.4); Mean Corpuscular Hemoglobin 30.6 pg (28.0-33.3); Mean Corpuscular Volume 90.2 fL (83.0-100.0); Platelet Count 304 K/mcL (140-400); Red Blood Count 3.46 M/mcL (3.82-4.97); Red Cell Distribution Width 11.6 % (11.5-14.5); White Blood Count 7.4 K/mcL (4.3-11.1)
[2021-04-29] MEDS: cefTRIAXone 2,000 MG in Water for inj. (sterile) 20 ML IVP SCH (01:57)
[2021-04-29] MEDS: Ketorolac 30 MG/ML VIAL IVP PRN (01:57)
[2021-04-29 02:20] LABS: BUN/Creatinine Ratio 10 (6-26); Blood Urea Nitrogen 6 mg/dL (6-20); Carbon Dioxide 22 mEq/L (23-29); Chloride 110 mEq/L (98-107); Glucose 82 mg/dL (70-105); Osmolality,Calculated 285 (280-300); Potassium 3.2 mEq/L (3.5-5.1); Sodium 139 mEq/L (136-145); eGFR For African Americans > 60 (> 60); eGFR For Non-African Americans > 60 (> 60)
[2021-04-29 06:31] VITALS: BP 126/74; PULSE 81; TEMP 98.3; O2SAT 99
[2021-04-29] MEDS: Topiramate 25 MG TABLET PO SCH (08:12)
[2021-04-30] MEDS ORDERED: cefTRIAXone 2,000 MG in Water for inj. (sterile) 20 ML IVP SCH (09:00)
== END 2021-04-29 11:27 | disposition home or self-care (01) | DRG 720 ==
LOC: SUATTDRO → 3ANU 03:11 → EMEROOARM 03:11 → SUATTDRO 13:22 → 3ANU 14:16
PROVIDERS: ADMIT Internal Medicine; ATTEND Internal Medicine